=== PATIENT | female | born 1995 | race American Indian/Alaskan Native ===

== ENCOUNTER 2017-01-06 18:19 | Inpatient (IN) | payer MEDICAID ==
[2017-01-06 19:07] LABS: Basophils % (Auto) 0.9 % (0.0-1.8); Eosinophils % (Auto) 1.2 % (0.0-4.3); Hematocrit 44.1 % (30.3-42.9); Hemoglobin 14.5 gm/dl (10.1-14.3); Mean Corpuscular HGB Conc 33 % (30-34); Mean Corpuscular Hemoglobin 29 pg (28-32); Mean Corpuscular Volume 87 fl (79-97); Platelet Count 216 K/mm3 (140-440); Red Blood Count 5.05 M/mm3 (3.65-5.03); Red Cell Distribution Width 14.1 % (13.2-15.2); White Blood Count 6.3 K/mm3 (4.5-11.0)
[2017-01-06 19:18] LABS: Anion Gap 29 mmol/L; BUN/Creatinine Ratio 8.33; Blood Urea Nitrogen 5 mg/dL (7-17); Calcium 9.2 mg/dL (8.4-10.2); Carbon Dioxide 15 mmol/L (22-30); Chloride 90.2 mmol/L (98-107); Glucose 485 mg/dL (65-100); Potassium 4.5 mmol/L (3.6-5.0); Sodium 130 mmol/L (137-145)
[2017-01-07] MEDS ORDERED: NACL 0.9% 1000 ML 1,000 ML IV ONE ×3 (01:08→01:41)
[2017-01-07] MEDS ORDERED: D50W (25GM) Syringe IV PRN (01:41)
--- NOTE | 2017-01-07 01:47 | Emergency Department Report ---
- General Chief complaint: Hyperglycemia Stated complaint: DIABETES Source: patient Mode of arrival: Ambulatory Limitations: No Limitations - History of Present Illness Initial comments: 21-year-old female with a past medical history type 1 diabetes presents to the hospital complaining of dizziness and back pain. Decreased appetite reported. Presents with a complaint is left greater than 1 year recently moved here from [place] does not have a physician. She denies nausea, vomiting, abdominal pain, polyuria, polydipsia dyspnea, or dysuria. No fever reported. - Related Data Home Medications Medication Instructions Recorded Confirmed Last Taken No Known Home Medications [No 01/06/17 01/06/17 Unknown Reported Home Medications] Allergies Allergy/AdvReac Type Severity Reaction Status Date / Time No Known Allergies Allergy Verified 01/07/17 01:50 ED Review of Systems ROS: Stated complaint: DIABETES Other details as noted in HPI Comment: All other systems reviewed and negative Other: Constitutional: No fevers chills or weight loss Eyes: No eye pain visual changes or discharge ENT: No ear pain or throat pain Neck: Denies pain Respiratory: Denies cough wheezing shortness of breath Cardiovascular: Denies chest pain, palpitations, syncope GI: Denies abdominal pain, nausea, vomiting, diarrhea : Denies dysuria, urinary frequency, or urgency Musculoskeletal: Denies joint swelling Skin: Denies rash, lesions, erythema Neurologic: Denies headache, numbness, focal weakness ED Past Medical Hx - Past Medical History Previous Medical History?: Yes Hx Diabetes: Yes (Type 1) - Surgical History Past Surgical History?: No - Social History Smoking Status: Former Smoker Substance Use Type: Non Opiate Pain - Medications Home Medications: Home Medications Medication Instructions Recorded Confirmed Last Taken Type No Known Home Medications [No 01/06/17 01/06/17 Unknown History Reported Home Medications] ED Physical Exam - General Limitations: No Limitations - Other Other exam information: General: No limitations, patient is alert in no acute distress Head exam: Atraumatic, normocephalic Eyes exam: Normal appearance ENT: Moist mucous membrane, normal oropharynx Neck exam: Normal inspection, full range of motion, no meningismus nontender Respiratory exam: Clear to auscultation bilateral, no wheezes, rales, crackles Cardiovascular: Normal rate and rhythm, normal heart sounds Abdomen: Soft, nondistended, and nontender, with normal bowel sounds, no rebound, or guarding Extremity: Full range of motion normal inspection no deformity Back: Normal Inspection, full range of motion, no tenderness Neurologic: Alert, oriented x3, cranial nerves intact, no motor or sensory deficit Psychiatric: normal affect, normal mood Skin: Warm, dry, intact ED Course Vital Signs 01/06/17 18:27 Temperature 98.6 F Pulse Rate 116 H Respiratory 18 Rate Blood Pressure 138/86 O2 Sat by Pulse 99 Oximetry - Reevaluation(s) Reevaluation #1: 01/07/17 IV insulin normal saline and initiated for DKA ED Medical Decision Making - Lab Data Result diagrams: 01/06/17 18:36 01/06/17 18:36 Lab Results 01/06/17 01/06/17 01/06/17 Range/Units 18:36 18:36 18:36 WBC 6.3 (4.5-11.0) K/mm3 RBC 5.05 H (3.65-5.03) M/mm3 Hgb 14.5 H (10.1-14.3) gm/dl Hct 44.1 H (30.3-42.9) % MCV 87 (79-97) fl MCH 29 (28-32) pg MCHC 33 (30-34) % RDW 14.1 (13.2-15.2) % Plt Count 216 (140-440) K/mm3 Lymph % (Auto) 32.1 (13.4-35.0) % [place] % (Auto) 4.8 (0.0-7.3) % Eos % (Auto) 1.2 (0.0-4.3) % Baso % (Auto) 0.9 (0.0-1.8) % Lymph # 2.0 (1.2-5.4) K/mm3 [place] # 0.3 (0.0-0.8) K/mm3 Eos # 0.1 (0.0-0.4) K/mm3 Baso # 0.1 (0.0-0.1) K/mm3 Seg Neutrophils % 61.0 (40.0-70.0) % Seg Neutrophils # 3.8 (1.8-7.7) K/mm3 VBG pH 7.260 L (7.320-7.420) Sodium 130 L (137-145) mmol/L Potassium 4.5 (3.6-5.0) mmol/L Chloride 90.2 L (98-107) mmol/L Carbon Dioxide 15 L (22-30) mmol/L Anion Gap 29 mmol/L BUN 5 L (7-17) mg/dL Creatinine 0.6 L (0.7-1.2) mg/dL Estimated GFR > 60 ml/min BUN/Creatinine Ratio 8.33 % Glucose 485 H (65-100) mg/dL POC Glucose (70-105) Calcium 9.2 (8.4-10.2) mg/dL 01/06/17 01/07/17 Range/Units 18:37 01:47 WBC (4.5-11.0) K/mm3 RBC (3.65-5.03) M/mm3 Hgb (10.1-14.3) gm/dl Hct (30.3-42.9) % MCV (79-97) fl MCH (28-32) pg MCHC (30-34) % RDW (13.2-15.2) % Plt Count (140-440) K/mm3 Lymph % (Auto) (13.4-35.0) % [place] % (Auto) (0.0-7.3) % Eos % (Auto) (0.0-4.3) % Baso % (Auto) (0.0-1.8) % Lymph # (1.2-5.4) K/mm3 [place] # (0.0-0.8) K/mm3 Eos # (0.0-0.4) K/mm3 Baso # (0.0-0.1) K/mm3 Seg Neutrophils % (40.0-70.0) % Seg Neutrophils # (1.8-7.7) K/mm3 VBG pH (7.320-7.420) Sodium (137-145) mmol/L Potassium (3.6-5.0) mmol/L Chloride (98-107) mmol/L Carbon Dioxide (22-30) mmol/L Anion Gap mmol/L BUN (7-17) mg/dL Creatinine (0.7-1.2) mg/dL Estimated GFR ml/min BUN/Creatinine Ratio % Glucose (65-100) mg/dL POC Glucose 424 H 265 H (70-105) Calcium (8.4-10.2) mg/dL - Medical Decision Making Patient has DKA secondary to acid noncompliance. She'll be admitted to the hospital further treatment. Insulin and IV fluids initiated. UA and pending at disposition - Differential Diagnosis DKA, hyperglycemia, anemia, noncompliance Critical Care Time: No Critical care attestation.: If time is entered above; I have spent that time in minutes in the direct care of this critically ill patient, excluding procedure time. ED Disposition Clinical Impression: DKA (diabetic ketoacidosis), Noncompliance Disposition: OP ADMIT IP TO THIS HOSP Is pt being admited?: Yes Condition: Stable Time of Disposition: 01:48 (Dr Medley/Hosp)
[2017-01-07] MEDS ORDERED: D5W/0.45% NACL/KCL 20 MEQ 20 MEQ/1,000 ML BAG IV SCH (02:00)
[2017-01-07] MEDS ORDERED: NovoLIN R 100 UNITS in NACL 0.9% 99 ML IV SCH (02:00)
[2017-01-07] MEDS ORDERED: DULCOLAX PR PRN (02:21)
[2017-01-07] MEDS ORDERED: MILK OF MAGNESIA PO PRN (02:21)
[2017-01-07] MEDS ORDERED: ALUM-MAG HYDROX-SIMETH 200-200-20MG/5ML PO PRN (02:21)
[2017-01-07] MEDS ORDERED: ZOFRAN IV PRN (02:21)
[2017-01-07] MEDS ORDERED: MORPHINE IV PRN (02:21)
--- NOTE | 2017-01-07 02:24 | History and Physical Report ---
History of Present Illness Date of examination: 01/07/17 Date of admission: 01/07/17 Chief complaint: Dizziness, nausea, abdominal pain History of present illness: Patient is 21-year-old with history of diabetes mellitus type 1. She states she had financial difficulties and has not taken her insulin in over one year. She presents today with nausea and dizziness and abdominal pain. Abdominal pain is mid abdomen, 3 out of 10. No vomiting. Abdominal pains not related to meals. She also complained of dizziness. In Emergency department labs reveal diabetic ketoacidosis with a glucose of 435, CO2 15 and anion gap of 29. Will start on insulin drip and admit to intensive care unit. Past History Past Medical History: diabetes Past Surgical History: No surgical history Social history: single, full code. denies: smoking, alcohol abuse Family history: diabetes Medications and Allergies Allergies Allergy/AdvReac Type Severity Reaction Status Date / Time No Known Allergies Allergy Verified 01/07/17 01:50 Home Medications Medication Instructions Recorded Confirmed Last Taken Type No Known Home Medications [No 01/06/17 01/06/17 Unknown History Reported Home Medications] Active Meds: Active Medications Al Hydrox/Mg Hydrox/Simethicone (Alum-Mag Hydrox-Simeth 225-035-57sy/5ml) 30 ml PO Q4H PRN PRN Reason: Indigestion Bisacodyl (Dulcolax) 10 mg NH QDAY PRN PRN Reason: constipation unrelieved by MOM Dextrose (D50w (25gm) Syringe) 0 ml IV PRN PRN PRN Reason: Hypoglycemia Heparin Sodium (Porcine) (Heparin) 5,000 unit SUB-Q Q8HR JAYJAY Potassium Chloride/Dextrose/Sod Cl (D5w/0.45% Nacl/Kcl 20 Meq) 20 meq in 1,000 mls @ 125 mls/hr IV DIRECT JAYJAY Sodium Chloride (Nacl 0.9% 1000 Ml) 1,000 mls @ 999 mls/hr IV BOLUS ONE Stop: 01/07/17 02:41 Insulin Human Regular 100 (units/ Sodium Chloride) 100 mls @ 1 mls/hr IV TITR JAYJAY; 1 UNITS/HR PRN Reason: Protocol Review of Systems All systems: negative (no fever, no headache, no chest pain or shortness of breath. All other systems reviewed and are negative) Exam - Physical Exam Narrative exam: Gen Appearance: Not in acute distress, HEENT: normocephalic, atraumatic Neck: supple, no JVD Lungs: Clear to auscultation, bilaterally, no rales, no wheeze Heart: S1 and S2 regular, no murmurs,no rubs or gallop, Abdomen: Soft , non tender, non distended, normal bowel sounds Extremity: No edema, no clubbing or cyanosis, Neuro : Awake,alert, oriented x 3, moves all extremities - Constitutional Vitals: Temp Pulse Resp BP Pulse Ox 98.6 F 116 H 18 138/86 99 01/06/17 18:27 01/06/17 18:27 01/06/17 18:27 01/06/17 18:27 01/06/17 18:27 Results - Labs CBC & Chem 7: 01/06/17 18:36 01/07/17 02:23 Labs: Abnormal lab results 01/06/17 01/06/17 01/06/17 Range/Units 18:36 18:36 18:36 RBC 5.05 H (3.65-5.03) M/mm3 Hgb 14.5 H (10.1-14.3) gm/dl Hct 44.1 H (30.3-42.9) % VBG pH 7.260 L (7.320-7.420) Sodium 130 L (137-145) mmol/L Chloride 90.2 L (98-107) mmol/L Carbon Dioxide 15 L (22-30) mmol/L BUN 5 L (7-17) mg/dL Creatinine 0.6 L (0.7-1.2) mg/dL Glucose 485 H (65-100) mg/dL POC Glucose (70-105) 01/06/17 01/07/17 Range/Units 18:37 01:47 RBC (3.65-5.03) M/mm3 Hgb (10.1-14.3) gm/dl Hct (30.3-42.9) % VBG pH (7.320-7.420) Sodium (137-145) mmol/L Chloride (98-107) mmol/L Carbon Dioxide (22-30) mmol/L BUN (7-17) mg/dL Creatinine (0.7-1.2) mg/dL Glucose (65-100) mg/dL POC Glucose 424 H 265 H (70-105) Assessment and Plan Diabetic ketoacidosis. Admit to intensive care unit. Start IV fluid, Insulin drip. Utilize DKA protocol. Obtain serial BMPs. Iinitial blood glucose 485, CO2 15 and anion gap 29. Will switch iv fluid when glucose < 250. Hyponatremia with sodium of 130. This should resolve with Normal saline iv fluid. UTI. Start Levaquin DVT prophylaxis with heparin subcut. Full code status
[2017-01-07 03:16] LABS: Anion Gap 27 mmol/L; Blood Urea Nitrogen 5 mg/dL (7-17); Calcium 8.4 mg/dL (8.4-10.2); Carbon Dioxide 16 mmol/L (22-30); Chloride 102.2 mmol/L (98-107); Glucose 160 mg/dL (65-100); Potassium 3.7 mmol/L (3.6-5.0); Sodium 141 mmol/L (137-145)
[2017-01-07] MEDS: HEPARIN SUB-Q SCH ×3 (05:54→23:56)
[2017-01-07 06:50] LABS: Bilirubin,Urine NEG (Negative); Blood,Urine LG (Negative); Ketones,Urine 80 mg/dL (Negative); Leukocyte Esterase,Urine NEG (Negative); Mucus,Urine FEW /HPF; Nitrite,Urine NEG (Negative); Urobilinogen,Urine < 2.0 mg/dL (<2.0)
[2017-01-07] MEDS ORDERED: PROTONIX PO SCH (08:00)
[2017-01-07 09:29] LABS: Anion Gap 16 mmol/L; Blood Urea Nitrogen 4 mg/dL (7-17); Carbon Dioxide 19 mmol/L (22-30); Chloride 109.7 mmol/L (98-107); Glucose 148 mg/dL (65-100); Potassium 3.8 mmol/L (3.6-5.0); Sodium 141 mmol/L (137-145)
[2017-01-07] MEDS ORDERED: LEVAQUIN 500MG/100ML 500 MG/100 ML BAG IV SCH (10:00)
[2017-01-07] MEDS: PROTONIX PO SCH (10:31)
--- NOTE | 2017-01-07 12:38 | Event Note ---
Date: 01/07/17 Hypoglycemic episode while on D5, BS in 30s; insulin drip discontinued temporarily and received D50; AG closed, so will transition to subcutaneous insulin.
[2017-01-07] MEDS: NOVOLOG SUB-Q SCH ×3 (13:26→22:34)
[2017-01-07] MEDS: NACL 0.9% 1000 ML 1,000 ML IV SCH (17:00)
[2017-01-07 17:29] LABS: Anion Gap 20 mmol/L; BUN/Creatinine Ratio 8; Blood Urea Nitrogen 3 mg/dL (7-17); Calcium 8.4 mg/dL (8.4-10.2); Carbon Dioxide 18 mmol/L (22-30); Chloride 104.7 mmol/L (98-107); Glucose 137 mg/dL (65-100); Potassium 4.2 mmol/L (3.6-5.0); Sodium 138 mmol/L (137-145)
[2017-01-08 04:11] LABS: Anion Gap 17 mmol/L; BUN/Creatinine Ratio 8; Blood Urea Nitrogen 3 mg/dL (7-17); Calcium 8.2 mg/dL (8.4-10.2); Carbon Dioxide 18 mmol/L (22-30); Chloride 107.2 mmol/L (98-107); Glucose 223 mg/dL (65-100); Potassium 3.5 mmol/L (3.6-5.0); Sodium 139 mmol/L (137-145)
[2017-01-08] MEDS: HEPARIN SUB-Q SCH ×2 (06:29→17:26)
[2017-01-08 06:37] LABS: Hematocrit 37.2 % (30.3-42.9); Hemoglobin 12.6 gm/dl (10.1-14.3); Mean Corpuscular HGB Conc 34 % (30-34); Mean Corpuscular Hemoglobin 29 pg (28-32); Mean Corpuscular Volume 86 fl (79-97); Platelet Count 175 K/mm3 (140-440); Red Blood Count 4.31 M/mm3 (3.65-5.03); Red Cell Distribution Width 13.9 % (13.2-15.2); White Blood Count 4.9 K/mm3 (4.5-11.0)
[2017-01-08 06:51] LABS: Anion Gap 17 mmol/L; BUN/Creatinine Ratio 5; Blood Urea Nitrogen 2 mg/dL (7-17); Calcium 8.4 mg/dL (8.4-10.2); Carbon Dioxide 20 mmol/L (22-30); Chloride 107.9 mmol/L (98-107); Glucose 202 mg/dL (65-100); Potassium 3.7 mmol/L (3.6-5.0); Sodium 141 mmol/L (137-145)
[2017-01-08 07:49] LABS: Basophils % (Manual) 0 % (0.0-1.8); Blastocytes % (Manual) 0 %; RBC Morphology Normal
[2017-01-08 07:52] LABS: Diff Status Complete
[2017-01-08] MEDS: NOVOLOG SUB-Q SCH ×3 (08:57→18:05)
[2017-01-08] MEDS: PROTONIX PO SCH (10:23)
--- NOTE | 2017-01-08 13:12 | Discharge Summary ---
Providers - Providers Date of Admission: 01/07/17 02:22 Date of discharge: 01/08/17 Attending physician: KELLY ALTAMIRANO Primary care physician: ELECTRIC REPAIR SUPERVISOR Hospitalization Condition: Stable Hospital course: Patient is 21-year-old with history of diabetes mellitus type 1 has not taken her insulin due to financial difficulties. She presented with nausea and dizziness and abdominal pain. In Emergency department labs reveal diabetic ketoacidosis with a glucose of 435, CO2 15 and anion gap of 29. She was started on insulin drip and admited to intensive care unit. her anion gap eventually closed and placed on subcutaneous insulin. She was tolerating diet and BG much stabilized. She was discharged home in stable condition. She was also treated for UTI. Discharge Diagnosis and management: /Diabetic ketoacidosis. Admited to intensive care unit. Placed on IV fluid, Insulin drip. Utilized DKA protocol. Obtained serial BMPs. Iinitial blood glucose was 485, CO2 15 and anion gap 29. Switched to subcu insulin when anion gap was closed. /Hyponatremia with sodium of 130. Resolved with Normal saline iv fluid. likely from hyperglycemia /UTI. placed on Levaquin on admission, d/ramirez with ciprofloxacin /DVT prophylaxis with heparin subcut. Disposition: DC-01 TO HOME OR SELFCARE Time spent for discharge: 32 minutes Core Measure Documentation - Palliative Care Palliative Care/ Comfort Measures: Not Applicable - Core Measures Any of the following diagnoses?: none Exam - Constitutional Vitals: Temp Pulse Resp BP Pulse Ox 98.3 F 86 20 102/68 100 01/08/17 08:40 01/08/17 08:40 01/08/17 08:32 01/08/17 08:40 01/08/17 08:32 General appearance: Present: no acute distress, well-nourished - EENT Eyes: Present: PERRL ENT: hearing intact, clear oral mucosa - Neck Neck: Present: supple, normal ROM - Respiratory Respiratory effort: normal Respiratory: bilateral: CTA - Cardiovascular Heart Sounds: Present: S1 & S2. Absent: rub, click - Extremities Extremities: pulses symmetrical, No edema Peripheral Pulses: within normal limits - Abdominal General gastrointestinal: Present: soft, non-tender, non-distended, normal bowel sounds - Integumentary Integumentary: Present: clear, warm, dry - Musculoskeletal Musculoskeletal: gait normal, strength equal bilaterally - Psychiatric Psychiatric: appropriate mood/affect, intact judgment & insight - Neurologic Neurologic: CNII-XII intact, moves all extremities Plan Activity: advance as tolerated Weight Bearing Status: Weight Bear as Tolerated Diet: diabetic Follow up with: PRIMARY CARE, [Primary Care Provider] - 3-5 Days Prescriptions: Ciprofloxacin HCl [Ciprofloxacin TAB] 500 mg PO BID #7 tablet Insulin NPH/Regular [NovoLIN 70/30] 10 unit SUB-Q BIDDIAB 60 Days
[2017-01-08] MEDS: NACL 0.9% 1000 ML 1,000 ML IV SCH (13:16)
[2017-01-08 17:56] VITALS: BP 108/76
== END 2017-01-08 18:40 | disposition home or self-care (01) | DRG 638 ==
LOC: ED 18:19 → CC1 01-07 02:22 → 3A 01-07 13:12
PROVIDERS: ADMIT Internal Medicine; ATTEND Internal Medicine
DX: E13.10 Other specified diabetes mellitus with ketoacidosis without coma (principal); N39.0 Urinary tract infection, site not specified; E87.1 Hypo-osmolality and hyponatremia; Z91.19 Patient's noncompliance with other medical treatment and regimen; Z87.891 Personal history of nicotine dependence; Z83.3 Family history of diabetes mellitus
CPT/HCPCS: 36415; 80048; 81001; 81025; 82805; 82962; 83036; 83735; 84100; 85007; 85025; 96361; 96365; 96375; J1644; J1815; J1956; J7030

== ENCOUNTER 2017-07-20 23:35 | Inpatient (IN) | payer MEDICAID, OTHER ==
[2017-07-21] MEDS ORDERED: ZOFRAN IM ONE (00:21)
[2017-07-21 00:34] LABS: Basophils # (Auto) 0.1 K/mm3 (0.0-0.1); Basophils % (Auto) 1.1 % (0.0-1.8); Eosinophils # (Auto) 0.1 K/mm3 (0.0-0.4); Eosinophils % (Auto) 1.5 % (0.0-4.3); Hematocrit 46.7 % (30.3-42.9); Hemoglobin 15.3 gm/dl (10.1-14.3); Lymphocytes # (Auto) 2.3 K/mm3 (1.2-5.4); Lymphocytes % (Auto) 37.7 % (13.4-35.0); Mean Corpuscular HGB Conc 33 % (30-34); Mean Corpuscular Hemoglobin 29 pg (28-32); Mean Corpuscular Volume 89 fl (79-97); Monocytes # (Auto) 0.3 K/mm3 (0.0-0.8); Monocytes % (Auto) 5.1 % (0.0-7.3); Platelet Count 223 K/mm3 (140-440); Red Blood Count 5.24 M/mm3 (3.65-5.03); Red Cell Distribution Width 14.3 % (13.2-15.2)
[2017-07-21 00:56] LABS: Alanine Aminotransferase 12 units/L (7-56); Albumin 4.2 g/dL (3.9-5); BUN/Creatinine Ratio 13; Blood Urea Nitrogen 8 mg/dL (7-17); Calcium 9.5 mg/dL (8.4-10.2); Hemolysis Index 5; Lipase 72 units/L (13-60)
[2017-07-21] MEDS ORDERED: REGLAN IV ONE (05:54)
[2017-07-21] MEDS ORDERED: REGLAN ONE (05:57)
--- NOTE | 2017-07-21 06:46 | Emergency Department Report ---
HPI - General Chief Complaint: Abdominal Pain Time Seen by Provider: 07/21/17 06:24 - HPI HPI: The patient is a 21 yo female with a history of typw 1 diabetes, and whom presents for evaluation of abdominal pain. The patient reports abdominal pain for the past 2-3 weeks, progressive, severe for the past one week, cramping in quality, exacerbated with vomiting. She has been multiple episodes of nausea and nonbilious, nonbloody emesis. The patient denies fever, chills, night sweats , headache, chest pain, cough, dyspnea, diarrhea, blood in the stool, dark tarry stool, dysuria, hematuria, flank pain, genital discharge, inability to pass flatus. ED Past Medical Hx - Past Medical History Hx Diabetes: Yes (since age 12) - Social History Smoking Status: Never Smoker Substance Use Type: None - Medications Home Medications: Home Medications Medication Instructions Recorded Confirmed Last Taken Type Ciprofloxacin HCl [Ciprofloxacin 500 mg PO BID #7 tablet 01/08/17 Unknown Rx TAB] Insulin NPH/Regular [NovoLIN 70/30] 10 unit SUB-Q BIDDIAB 60 Days 01/08/17 Unknown Rx units ED Review of Systems ROS: Stated complaint: ABDOMINAL PAIN Other details as noted in HPI Constitutional: denies: fever ENT: denies: throat or neck pain Respiratory: denies: cough, shortness of breath Cardiovascular: denies: chest pain Endocrine: denies unexplained weight loss or gain Gastrointestinal: reports abdominal pain, nausea Genitourinary: denies: dysuria Musculoskeletal: denies: leg swelling Skin: denies: rash Neurological: denies: headache Hematological/Lymphatic: denies: easy bleeding or easy bruising Psych: denies sadness or hopelessness Physical Exam - Physical Exam Vital Signs: Vital Signs 07/20/17 07/21/17 23:45 00:05 Temperature 98.7 F 98 F Pulse Rate 121 H 110 H Respiratory 18 16 Rate Blood Pressure 109/81 105/81 O2 Sat by Pulse 100 99 Oximetry Physical Exam: General: well-nourished, well-developed, no acute distress Head: Normocephalic, atraumatic Eyes: normal sclera ENT: Mucous membranes are pale and dry Neck: No neck stiffness, no cervical adenopathy Respiratory: Breath sounds equal bilaterally, no wheezing, rales, or rhonchi Cardio: S1 and S2 present, no murmurs, rubs, gallops, capillary refill is delayed Abdomen: Normoactive bowel sounds, soft abdomen, periumbilical tenderness to palpation present, no rigidity, no guarding or rebound tenderness Chest WALL/Back: No tenderness to palpation of the chest wall, no CVA tenderness with percussion Musc: No pitting edema Skin: No rash Neuro: no facial drooping, normal speech Psych: Normal affect ED Course Vital Signs 07/20/17 07/21/17 23:45 00:05 Temperature 98.7 F 98 F Pulse Rate 121 H 110 H Respiratory 18 16 Rate Blood Pressure 109/81 105/81 O2 Sat by Pulse 100 99 Oximetry ED Medical Decision Making - Lab Data Result diagrams: 07/21/17 00:21 07/21/17 00:21 - Medical Decision Making The patient was seen and examined by myself. The patient is placed on a cardiac exercise physiologist and continuous pulse ox. On initial evaluation, the patient was found to be in no distress. Evaluation orders are placed. IV access is established and the patient is given 1 L normal saline fluid bolus and Zofran for nausea, and IV analgesic for pain. Lab results reveal elevated lipase level 72, glucose of 316, low pH of 7.23, increased anion gap 38, and low bicarbonate, consistent with diabetic ketoacidosis. The patient is given IV insulin for treatment of her hyperglycemia and normal saline fluid boluses for treatment of her dehydration. The on-call hospitalist service was contacted. They agreed to admit the patient for further treatment and close monitoring. The ED admit order was placed. The patient was admitted in guarded condition. Critical care attestation.: If time is entered above; I have spent that time in minutes in the direct care of this critically ill patient, excluding procedure time. ED Disposition Clinical Impression: Dehydration DKA (diabetic ketoacidosis) Qualifiers: Diabetes mellitus type: type 1 Diabetes mellitus complication detail: without coma Qualified Code(s): E10.10 - Type 1 diabetes mellitus with ketoacidosis without coma Pancreatitis, acute Qualifiers: Pancreatitis type: unspecified pancreatitis type Acute pancreatitis complication: unspecified Qualified Code(s): K85.90 - Acute pancreatitis without necrosis or infection, unspecified Disposition: 09 OP ADMIT IP TO THIS HOSP Is pt being admited?: Yes Does the pt Need Aspirin: Yes Condition: Serious Instructions: Diabetic Ketoacidosis (ED), Abdominal Pain (ED) Referrals: BECKY ZAMBRANO MD [Primary Care Provider] - 3-5 Days Time of Disposition: 06:48
[2017-07-21] MEDS ORDERED: HumuLIN R IV ONE ×3 (06:47→08:38)
[2017-07-21] MEDS ORDERED: NACL 0.9% 1000 ML 1,000 ML IV ONE ×3 (06:47→11:04)
[2017-07-21] MEDS ORDERED: SUBLIMAZE IV ONE (06:59)
[2017-07-21] MEDS ORDERED: ATIVAN IV ONE (07:00)
[2017-07-21] MEDS ORDERED: ZOFRAN IV ONE (07:00)
--- NOTE | 2017-07-21 09:40 | History and Physical Report ---
History of Present Illness Date of examination: 07/21/17 Date of admission: 07/21/17 Chief complaint: Nausea Vomiting Abdominal pain Past History Past Medical History: diabetes Social history: single, Lives alone, full code. denies: smoking, alcohol abuse Family history: diabetes Medications and Allergies Allergies Allergy/AdvReac Type Severity Reaction Status Date / Time No Known Allergies Allergy Verified 01/07/17 01:50 Home Medications Medication Instructions Recorded Confirmed Last Taken Type Ciprofloxacin HCl [Ciprofloxacin 500 mg PO BID #7 tablet 01/08/17 Unknown Rx TAB] Insulin NPH/Regular [NovoLIN 70/30] 10 unit SUB-Q BIDDIAB 60 Days 01/08/17 Unknown Rx units Active Meds: Active Medications Sodium Chloride (Nacl 0.9% 1000 Ml) 1,000 mls @ 999 mls/hr IV BOLUS ONE Stop: 07/21/17 10:38 Exam - Physical Exam Narrative exam: Gen appearance: Not in acute distress, lying in bed, HEENT:Normocephalic, atraumatic Neck:supple, no JVD Lungs: Clear to auscultation bilaterally, no crackles , no wheeze Heart: S1 and S2 regular, no murmurs, no rubs or gallop Abdomen: soft, non tender, non distended, normal bowel sounds Ext: No edema, no clubbing, no cyanosis. Neuro: Awake, alert, oriented x 3. Moves all ext, no focal signs Psych:Normal mood - Constitutional Vitals: Temp Pulse Resp BP Pulse Ox 98 F 110 H 18 105/81 98 07/21/17 00:05 07/21/17 00:05 07/21/17 08:09 07/21/17 00:05 07/21/17 08:09 Results - Labs CBC & Chem 7: 07/21/17 00:21 07/21/17 11:44 Labs: Abnormal lab results 07/21/17 07/21/17 07/21/17 Range/Units 00:17 00:21 00:21 RBC 5.24 H (3.65-5.03) M/mm3 Hgb 15.3 H (10.1-14.3) gm/dl Hct 46.7 H (30.3-42.9) % Lymph % (Auto) 37.7 H (13.4-35.0) % VBG pH (7.320-7.420) Chloride 95.5 L (98-107) mmol/L Carbon Dioxide 13 L (22-30) mmol/L Creatinine 0.6 L (0.7-1.2) mg/dL Glucose 243 H (65-100) mg/dL POC Glucose 238 H (70-105) Lipase 72 H (13-60) units/L 07/21/17 07/21/17 Range/Units 00:21 08:30 RBC (3.65-5.03) M/mm3 Hgb (10.1-14.3) gm/dl Hct (30.3-42.9) % Lymph % (Auto) (13.4-35.0) % VBG pH 7.235 L (7.320-7.420) Chloride (98-107) mmol/L Carbon Dioxide (22-30) mmol/L Creatinine (0.7-1.2) mg/dL Glucose (65-100) mg/dL POC Glucose 316 H (70-105) Lipase (13-60) units/L Assessment and Plan DKA. Will repeat BMP stat. If anion gap high, will start Insulin drip and admit to ICU
[2017-07-21 11:01] LABS: BUN/Creatinine Ratio 16; Blood Urea Nitrogen 11 mg/dL (7-17); Calcium 8.9 mg/dL (8.4-10.2); Hemolysis Index 7
[2017-07-21] MEDS ORDERED: D50W (25GM) Syringe IV PRN (11:25)
[2017-07-21] MEDS ORDERED: SODIUM CHLORIDE FLUSH SYRINGE 10 ML IV PRN (11:25)
[2017-07-21] MEDS ORDERED: PERCOCET 5/325 PO PRN (11:25)
[2017-07-21] MEDS ORDERED: ZOFRAN IV PRN (11:25)
[2017-07-21] MEDS ORDERED: SODIUM BICARBONATE IV ONE ×2 (11:50→12:00)
[2017-07-21] MEDS ORDERED: KCL 20MEQ/100ML 20 MEQ/100 ML BAG IV SCH ×2 (12:00)
[2017-07-21] MEDS ORDERED: SODIUM BICARBONATE 50 MEQ in NACL 0.9% 1000 ML 1,000 ML IV ONE (12:00)
[2017-07-21] MEDS ORDERED: HumuLIN R 100 UNITS in NACL 0.9% 99 ML IV SCH (12:00)
[2017-07-21] MEDS ORDERED: D5W/0.45% NACL/KCL 20 MEQ 20 MEQ/1,000 ML BAG IV ONE (12:13)
[2017-07-21 12:22] LABS: BUN/Creatinine Ratio 14; Blood Urea Nitrogen 10 mg/dL (7-17); Calcium 8.4 mg/dL (8.4-10.2)
[2017-07-21 12:23] LABS: Hemolysis Index 2
[2017-07-21] MEDS: D5W/0.45% NACL/KCL 20 MEQ 20 MEQ/1,000 ML BAG IV SCH ×2 (12:33→20:06)
[2017-07-21 12:45] LABS: Bilirubin,Urine NEG (Negative); Blood,Urine NEG (Negative); Color,Urine Straw (Yellow); Mucus,Urine FEW /HPF; Protein,Urine <15 mg/dL mg/dL (Negative); Urobilinogen,Urine < 2.0 mg/dL (<2.0); WBC,Urine < 1.0 /HPF (0.0-6.0)
[2017-07-21 13:23] LABS: Amphetamine Screen,Urine PRESUMPTIVE NEGATIVE; Benzodiazepines Screen,Urine PRESUMPTIVE NEGATIVE; Cannabinoid Screen,Urine PRESUMPTIVE NEGATIVE; Cocaine Screen,Urine PRESUMPTIVE NEGATIVE; Methadone Screen,Urine PRESUMPTIVE NEGATIVE; Opiate Screen,Urine PRESUMPTIVE NEGATIVE
[2017-07-21 13:55] LABS: BUN/Creatinine Ratio 13; Blood Urea Nitrogen 9 mg/dL (7-17); Calcium 8.5 mg/dL (8.4-10.2); Hemolysis Index 8
[2017-07-21] MEDS: SODIUM BICARBONATE 100 MEQ in STERILE WATER 1,000 ML IV SCH ×2 (15:31→23:26)
[2017-07-21 16:10] LABS: BUN/Creatinine Ratio 13; Blood Urea Nitrogen 8 mg/dL (7-17); Calcium 8.7 mg/dL (8.4-10.2); Hemolysis Index 18
[2017-07-21 18:20] LABS: BUN/Creatinine Ratio 12; Blood Urea Nitrogen 7 mg/dL (7-17); Calcium 8.3 mg/dL (8.4-10.2); Hemolysis Index 32
[2017-07-21 20:23] LABS: BUN/Creatinine Ratio 12; Blood Urea Nitrogen 7 mg/dL (7-17); Calcium 8.2 mg/dL (8.4-10.2); Hemolysis Index 4
[2017-07-21] MEDS ORDERED: SODIUM CHLORIDE FLUSH SYRINGE 10 ML IV SCH (22:00)
[2017-07-21] MEDS ORDERED: LOVENOX SUB-Q SCH (22:00)
[2017-07-22 01:09] VITALS: BP 122/82
[2017-07-22] MEDS ORDERED: PNEUMOVAX 23 IM ONE (12:00)
[2017-07-22] MEDS ORDERED: Fluarix Quad 2017-2018(36 MOS+ IM ONE (12:00)
== END 2017-07-22 00:55 | disposition left against medical advice (07) | DRG 438 ==
LOC: ED 23:35 → CC1 07-21 11:29
PROVIDERS: ADMIT Internal Medicine; ATTEND Internal Medicine
PROC: 3E0234Z Introduction of Serum, Toxoid and Vaccine into Muscle, Percutaneous Approach (ICD-10-PCS; principal; 2017-07-22)
DX: K85.90 Acute pancreatitis without necrosis or infection, unspecified (principal); E10.10 Type 1 diabetes mellitus with ketoacidosis without coma; Z60.2 Problems related to living alone; E86.0 Dehydration; Z79.899 Other long term (current) drug therapy; Z79.4 Long term (current) use of insulin; Z83.3 Family history of diabetes mellitus; Z23 Encounter for immunization
CPT/HCPCS: 36415; 80048; 80053; 80307; 81001; 82010; 82805; 82962; 83036; 83690; 83735; 84100; 84703; 85025; 99285; J1815; J2060; J2405; J2765; J3010; J7030

== ENCOUNTER 2017-11-19 09:05 | Emergency (ER) | payer MEDICAID ==
[2017-11-19 09:55] LABS: Basophils # (Auto) 0.1 K/mm3 (0.0-0.1); Basophils % (Auto) 1.1 % (0.0-1.8); Eosinophils # (Auto) 0.2 K/mm3 (0.0-0.4); Hematocrit 41.7 % (30.3-42.9); Hemoglobin 13.9 gm/dl (10.1-14.3); Lymphocytes # (Auto) 2.3 K/mm3 (1.2-5.4); Lymphocytes % (Auto) 51.7 % (13.4-35.0); Mean Corpuscular HGB Conc 33 % (30-34); Mean Corpuscular Hemoglobin 29 pg (28-32); Mean Corpuscular Volume 87 fl (79-97); Monocytes # (Auto) 0.3 K/mm3 (0.0-0.8); Monocytes % (Auto) 5.8 % (0.0-7.3); Platelet Count 198 K/mm3 (140-440); Red Blood Count 4.81 M/mm3 (3.65-5.03); Red Cell Distribution Width 14.6 % (13.2-15.2)
[2017-11-19 10:09] LABS: BUN/Creatinine Ratio 10; Blood Urea Nitrogen 6 mg/dL (7-17); Calcium 8.9 mg/dL (8.4-10.2); Hemolysis Index 26
[2017-11-19] MEDS ORDERED: NACL 0.9% 1000 ML 1,000 ML IV ONE ×2 (11:42→13:34)
[2017-11-19] MEDS ORDERED: HumuLIN R IV ONE (11:42)
--- NOTE | 2017-11-19 13:34 | Emergency Department Report ---
ED General Adult HPI - General Chief complaint: Hyperglycemia Stated complaint: DIABETES Time Seen by Provider: 11/19/17 11:41 Source: patient Mode of arrival: Ambulatory Limitations: No Limitations - History of Present Illness Initial comments: This is a 22-year-old female that admits noncompliance with her insulin 70/30 regimen for at least one week. She does complain of polyuria and polydipsia. She has not been vomiting. She decided to come to the emergency department today as she has no primary care provider. She moved up here from [place] over a week ago. She denies fever chills chest pain or abdominal pain. She is not short of breath. -: week(s) Improves with: none Worsens with: none Associated Symptoms: denies other symptoms Treatments Prior to Arrival: none - Related Data Previous Rx's Medication Instructions Recorded Last Taken Type Ciprofloxacin HCl [Ciprofloxacin 500 mg PO BID #7 tablet 01/08/17 Unknown Rx TAB] Insulin NPH/Regular [NovoLIN 70/30] 10 unit SUB-Q BIDDIAB 60 Days 01/08/17 Unknown Rx units Insulin NPH Hum/Reg Insulin Hm 20 unit SQ BID #1 bottle 11/19/17 Unknown Rx [HumuLIN 70-30 Vial] Allergies Allergy/AdvReac Type Severity Reaction Status Date / Time No Known Allergies Allergy Verified 11/19/17 09:11 ED Review of Systems ROS: Stated complaint: DIABETES Other details as noted in HPI Constitutional: denies: chills, fever Eyes: denies: eye pain, eye discharge, vision change ENT: denies: ear pain, throat pain Respiratory: denies: cough, shortness of breath, wheezing Cardiovascular: denies: chest pain, palpitations Endocrine: increased hunger, increased thirst, increased urine Gastrointestinal: denies: abdominal pain, nausea, diarrhea Genitourinary: denies: urgency, dysuria, discharge Musculoskeletal: denies: back pain, joint swelling, arthralgia Skin: denies: rash, lesions Neurological: denies: headache, weakness, paresthesias Psychiatric: denies: anxiety, depression Hematological/Lymphatic: denies: easy bleeding, easy bruising ED Past Medical Hx - Past Medical History Hx Congestive Heart Failure: No Hx Diabetes: Yes (since age 12) Hx Asthma: No Hx COPD: No - Surgical History Past Surgical History?: No - Social History Smoking Status: Never Smoker Substance Use Type: None - Medications Home Medications: Home Medications Medication Instructions Recorded Confirmed Last Taken Type Ciprofloxacin HCl [Ciprofloxacin 500 mg PO BID #7 tablet 01/08/17 Unknown Rx TAB] Insulin NPH/Regular [NovoLIN 70/30] 10 unit SUB-Q BIDDIAB 60 Days 01/08/17 Unknown Rx units Insulin NPH Hum/Reg Insulin Hm 20 unit SQ BID #1 bottle 11/19/17 Unknown Rx [HumuLIN 70-30 Vial] ED Physical Exam - General Limitations: No Limitations General appearance: alert, in no apparent distress - Head Head exam: Present: atraumatic, normocephalic - Eye Eye exam: Present: normal appearance. Absent: scleral icterus - ENT ENT exam: Present: mucous membranes moist - Neck Neck exam: Present: normal inspection. Absent: tenderness, meningismus - Respiratory Respiratory exam: Present: normal lung sounds bilaterally. Absent: respiratory distress - Cardiovascular Cardiovascular Exam: Present: regular rate, normal rhythm. Absent: systolic murmur, diastolic murmur, rubs, gallop - GI/Abdominal GI/Abdominal exam: Present: soft, normal bowel sounds. Absent: distended, tenderness, guarding, rebound, rigid - Extremities Exam Extremities exam: Present: normal inspection, full ROM. Absent: calf tenderness - Back Exam Back exam: Present: normal inspection - Neurological Exam Neurological exam: Present: alert, oriented X3, CN II-XII intact. Absent: motor sensory deficit - Psychiatric Psychiatric exam: Present: normal affect, normal mood - Skin Skin exam: Present: warm, dry, intact, normal color. Absent: rash ED Course Vital Signs 11/19/17 09:11 Temperature 98.2 F Pulse Rate 120 H Respiratory 20 Rate Blood Pressure 118/74 O2 Sat by Pulse 99 Oximetry - Reevaluation(s) Reevaluation #1: Patient was given 1 dose of IV insulin. Sugar came to approximately 250. She was given IV fluid. She has no indication for acute hospitalization. She was previously on 70/30 insulin 20 units twice a day and no regular coverage. She states that she was taken off regular and the sliding scale. I'm going to restart her 7030 at this time and refer her to the local primary care clinic. 11/19/17 13:32 Reevaluation #2: Patient is not confused. Her mental status is normal. She tolerated a liter of normal saline. I will give her another liter prior to her departure. I think part of her hyponatremia is probably experiencing related to her hyper glycemia. However she's been drinking a lot of water. She is told not to do so further. 11/19/17 13:33 ED Medical Decision Making - Lab Data Result diagrams: 11/19/17 09:40 11/19/17 09:43 Laboratory Results - last 24 hr 11/19/17 11/19/17 11/19/17 09:15 09:40 09:43 WBC 4.5 RBC 4.81 Hgb 13.9 Hct 41.7 MCV 87 MCH 29 MCHC 33 RDW 14.6 Plt Count 198 Lymph % (Auto) 51.7 H [place] % (Auto) 5.8 Eos % (Auto) 4.0 Baso % (Auto) 1.1 Lymph # 2.3 [place] # 0.3 Eos # 0.2 Baso # 0.1 Seg Neutrophils % 37.4 L Seg Neutrophils # 1.7 L VBG pH Sodium 128 L Potassium 3.8 Chloride 91.6 L Carbon Dioxide 21 L Anion Gap 19 BUN 6 L Creatinine 0.6 L Estimated GFR > 60 BUN/Creatinine Ratio 10 Glucose 447 H POC Glucose 355 H Calcium 8.9 11/19/17 11/19/17 09:43 13:22 WBC RBC Hgb Hct MCV MCH MCHC RDW Plt Count Lymph % (Auto) [place] % (Auto) Eos % (Auto) Baso % (Auto) Lymph # [place] # Eos # Baso # Seg Neutrophils % Seg Neutrophils # VBG pH 7.314 L Sodium Potassium Chloride Carbon Dioxide Anion Gap BUN Creatinine Estimated GFR BUN/Creatinine Ratio Glucose POC Glucose 264 H Calcium Critical care attestation.: If time is entered above; I have spent that time in minutes in the direct care of this critically ill patient, excluding procedure time. ED Disposition Clinical Impression: Uncontrolled type 1 diabetes mellitus with hyperglycemia, Hyponatremia Disposition: DC-01 TO HOME OR SELFCARE Is pt being admited?: No Does the pt Need Aspirin: No Condition: Stable Instructions: Diabetes Mellitus Type 2 in Adults (ED), Hyponatremia (ED) Additional Instructions: Do not drink excessive water. Get her insulin and continue. Return if any further problem or acute change. Follow[facility]up at the [facility]. Prescriptions: Insulin NPH Hum/Reg Insulin Hm [HumuLIN 70-30 Vial] 20 unit SQ BID #1 bottle Referrals: PRIMARY CARE, [Primary Care Provider] - 3-5 Days Time of Disposition: 13:49
[2017-11-19] MEDS ORDERED: HumuLIN R ONE (15:39)
[2017-11-19] MEDS ORDERED: HumuLIN R SUB-Q ONE (15:42)
[2017-11-19 16:07] VITALS: BP 104/72
== END 2017-11-19 15:52 | disposition home or self-care (01) ==
LOC: ED 09:05
DX: E10.65 Type 1 diabetes mellitus with hyperglycemia (principal); E87.1 Hypo-osmolality and hyponatremia; Z79.4 Long term (current) use of insulin
CPT/HCPCS: 36415; 80048; 82805; 82962; 85025; 93005; 93010; 96361; 96372; 96374; 99284; J7030; J1815

== ENCOUNTER 2018-01-29 11:36 | Inpatient (IN) | payer SELFPAY ==
[2018-01-29] MEDS ORDERED: NACL 0.9% 1000 ML 1,000 ML ONE (11:49)
--- NOTE | 2018-01-29 11:57 | Emergency Department Report ---
HPI - General Chief Complaint: Hyperglycemia Time Seen by Provider: 01/29/18 11:44 - HPI HPI: 22-year-old female presents to the emergency department with complaint of a few days of nausea and vomiting, bilateral lower extremity and foot pains and some elevated blood sugar. The patient is a insulin-dependent diabetic. She recently moved up here from [place] and therefore does not have a primary care physician and does not have insurance. She usually has been on Humalog 20 units 3 times daily but cannot afford that and therefore has been buying 70/30 [id number] allegedly and taking 20 units 3 times a day of this. She denies any fever, chest pain, shortness of breath. ED Past Medical Hx - Past Medical History Hx Congestive Heart Failure: No Hx Diabetes: Yes (since age 12) Hx Asthma: No Hx COPD: No - Social History Smoking Status: Never Smoker Substance Use Type: None - Medications Home Medications: Home Medications Medication Instructions Recorded Confirmed Last Taken Type Insulin NPH Hum/Reg Insulin Hm 20 unit SQ TID 01/29/18 01/29/18 01/29/18 History [Novolin 70-30 100 Unit/ml Vial] ED Review of Systems ROS: Stated complaint: VOMITTING Other details as noted in HPI Comment: All other systems reviewed and negative Constitutional: denies: chills, fever Eyes: denies: eye pain, eye discharge, vision change ENT: denies: ear pain, throat pain Respiratory: denies: cough, shortness of breath, wheezing Cardiovascular: denies: chest pain, palpitations Gastrointestinal: nausea, vomiting Genitourinary: denies: dysuria, discharge Musculoskeletal: myalgia. denies: joint swelling Neurological: denies: headache, weakness Physical Exam - Physical Exam Vital Signs: Vital Signs 01/29/18 11:44 Temperature 98.7 F Pulse Rate 135 H Physical Exam: GENERAL: The patient is well-developed well-nourished. HEENT: Normocephalic. Atraumatic. Patient has dry mucous membranes. EYES: Extraocular motions are intact. Pupils are equal and reactive to light bilaterally. NECK: Supple. Trachea is midline. CHEST/LUNGS: Clear to auscultation. There is no respiratory distress noted. HEART/CARDIOVASCULAR: Regular. There is moderate tachycardia. There is no gallop rub or murmur. ABDOMEN: Abdomen is soft, nontender. Patient has normal bowel sounds. There is no abdominal distention. SKIN: Skin is warm and dry. NEURO: The patient is awake, alert, and oriented. The patient is cooperative. The patient has no focal neurologic deficits. The patient has normal speech. MUSCULOSKELETAL: There is no tenderness or deformity. There is no evidence of acute injury. ED Course Vital Signs 01/29/18 11:44 Temperature 98.7 F Pulse Rate 135 H ED Medical Decision Making - Lab Data Result diagrams: 01/29/18 11:53 01/29/18 11:54 - Medical Decision Making Patient presents in diabetic ketoacidosis. She has a venous acidosis of 7.26, a blood sugar of greater than 500 and an anion gap of 37. She has been started on an insulin drip with IV fluid resuscitation and will be admitted to the ICU or stepdown unit. She has been accepted for admission by the hospitalist, Dr. Rojas. - Differential Diagnosis DKA, HHNK, Sepsis Critical Care Time: Yes Critical care time in (mins) excluding proc time.: 35 Critical care attestation.: If time is entered above; I have spent that time in minutes in the direct care of this critically ill patient, excluding procedure time. Critical care time was spent on this patient during her initial evaluation, multiple re-evaluations, ordering and interpretation of labs and imaging, ordering of IV fluid resuscitation and insulin drip. Critical Care Time: 35 minutes ED Disposition Clinical Impression: Dehydration DKA (diabetic ketoacidosis) Qualifiers: Diabetes mellitus type: type 1 Diabetes mellitus complication detail: without coma Qualified Code(s): E10.10 - Type 1 diabetes mellitus with ketoacidosis without coma Disposition: 09 OP ADMIT IP TO THIS HOSP Is pt being admited?: Yes Condition: Serious Instructions: Diabetic Ketoacidosis (ED) Time of Disposition: 13:47
[2018-01-29 12:12] LABS: Basophils # (Auto) 0.1 K/mm3 (0.0-0.1); Basophils % (Auto) 0.8 % (0.0-1.8); Eosinophils % (Auto) 0.5 % (0.0-4.3); Hematocrit 42.9 % (30.3-42.9); Hemoglobin 14.2 gm/dl (10.1-14.3); Lymphocytes # (Auto) 1.8 K/mm3 (1.2-5.4); Lymphocytes % (Auto) 22.5 % (13.4-35.0); Mean Corpuscular HGB Conc 33 % (30-34); Mean Corpuscular Hemoglobin 29 pg (28-32); Mean Corpuscular Volume 87 fl (79-97); Monocytes # (Auto) 0.3 K/mm3 (0.0-0.8); Monocytes % (Auto) 3.5 % (0.0-7.3); Platelet Count 239 K/mm3 (140-440); Red Blood Count 4.94 M/mm3 (3.65-5.03); Red Cell Distribution Width 16.3 % (13.2-15.2)
[2018-01-29] MEDS: NACL 0.9% 1000 ML 1,000 ML IV ONE ×3 (12:27→16:31)
[2018-01-29 12:33] LABS: Alanine Aminotransferase 11 units/L (7-56); Albumin 3.9 g/dL (3.9-5); BUN/Creatinine Ratio 17; Blood Urea Nitrogen 12 mg/dL (7-17); Calcium 9.2 mg/dL (8.4-10.2); Hemolysis Index 23
[2018-01-29] MEDS ORDERED: D50W (25GM) Syringe IV PRN ×2 (12:45→14:53)
[2018-01-29] MEDS ORDERED: ZOFRAN IV ONE (13:16)
[2018-01-29 13:39] LABS: Bacteria,Urine 1+ /HPF (Negative); Bilirubin,Urine NEG (Negative); Blood,Urine NEG (Negative); Color,Urine Straw (Yellow); Mucus,Urine FEW /HPF; Protein,Urine <15 mg/dL mg/dL (Negative); Urobilinogen,Urine < 2.0 mg/dL (<2.0)
[2018-01-29] MEDS: HumuLIN R 100 UNITS in NACL 0.9% 99 ML IV SCH ×2 (13:40→19:03)
[2018-01-29] MEDS ORDERED: NACL 0.9% 1000 ML 1,000 ML IV ONE (13:43)
[2018-01-29 14:20] LABS: Amphetamine Screen,Urine PRESUMPTIVE NEGATIVE; Benzodiazepines Screen,Urine PRESUMPTIVE NEGATIVE; Cannabinoid Screen,Urine PRESUMPTIVE NEGATIVE; Cocaine Screen,Urine PRESUMPTIVE NEGATIVE; Methadone Screen,Urine PRESUMPTIVE NEGATIVE; Opiate Screen,Urine PRESUMPTIVE NEGATIVE
--- NOTE | 2018-01-29 14:44 | History and Physical Report ---
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 Past Medical History Diabetes: Yes (since age 12) Social History Smoking Status: Never Smoker Past Surgical History N/A Family History Htn - Medications Home Medications: Home Medications Medication Instructions Recorded Confirmed Last Taken Type Insulin NPH Hum/Reg Insulin Hm 20 unit SQ TID 01/29/18 01/29/18 01/29/18 History [Novolin 70-30 100 Unit/ml Vial] Review of Systems ROS: Stated complaint: VOMITTING Other details as noted in HPI Comment: All other systems reviewed and negative Constitutional: denies: chills, fever Eyes: denies: eye pain, eye discharge, vision change ENT: denies: ear pain, throat pain Respiratory: denies: cough, shortness of breath, wheezing Cardiovascular: denies: chest pain, palpitations Gastrointestinal: nausea, vomiting Genitourinary: denies: dysuria, discharge Musculoskeletal: myalgia. denies: joint swelling Neurological: denies: headache, weakness Medications and Allergies Allergies Allergy/AdvReac Type Severity Reaction Status Date / Time No Known Allergies Allergy Verified 11/19/17 09:11 Home Medications Medication Instructions Recorded Confirmed Last Taken Type Insulin NPH Hum/Reg Insulin Hm 20 unit SQ TID 01/29/18 01/29/18 01/29/18 History [Novolin 70-30 100 Unit/ml Vial] Active Meds: Active Medications Dextrose (D50w (25gm) Syringe) 0 ml IV PRN PRN PRN Reason: Hypoglycemia Insulin Human Regular 100 (units/ Sodium Chloride) 100 mls @ 5 mls/hr IV TITR JAYJAY; Protocol Last Admin: 01/29/18 13:40 Dose: 5 units/hr, 5 mls/hr Exam - Constitutional Vitals: Temp Pulse Resp BP Pulse Ox 98.7 F 133 H 19 113/71 100 01/29/18 11:44 01/29/18 13:30 01/29/18 13:30 01/29/18 13:30 01/29/18 13:30 General appearance: Present: no acute distress, well-nourished - EENT Eyes: Present: PERRL ENT: hearing intact, clear oral mucosa - Neck Neck: Present: supple, normal ROM - Respiratory Respiratory effort: normal Respiratory: bilateral: CTA - Cardiovascular Heart rate: 78 Rhythm: regular Heart Sounds: Present: S1 & S2. Absent: rub, click - Extremities Extremities: no ischemia, pulses intact, pulses symmetrical, No edema Peripheral Pulses: within normal limits - Abdominal General gastrointestinal: Present: soft, non-tender, non-distended, normal bowel sounds Female genitourinary: Present: normal - Rectal Rectal Exam: deferred - Integumentary Integumentary: Present: clear, warm, dry - Musculoskeletal Musculoskeletal: gait normal, strength equal bilaterally - Psychiatric Psychiatric: appropriate mood/affect, intact judgment & insight - Neurologic Neurologic: CNII-XII intact, moves all extremities - Allied Health Allied health notes reviewed: nursing, case management Results - Labs CBC & Chem 7: 01/29/18 11:53 01/29/18 23:40 Labs: Laboratory Last Values WBC 8.1 K/mm3 (4.5-11.0) 01/29/18 11:53 RBC 4.94 M/mm3 (3.65-5.03) 01/29/18 11:53 Hgb 14.2 gm/dl (10.1-14.3) 01/29/18 11:53 Hct 42.9 % (30.3-42.9) 01/29/18 11:53 MCV 87 fl (79-97) 01/29/18 11:53 MCH 29 pg (28-32) 01/29/18 11:53 MCHC 33 % (30-34) 01/29/18 11:53 RDW 16.3 % (13.2-15.2) H 01/29/18 11:53 Plt Count 239 K/mm3 (140-440) 01/29/18 11:53 Lymph % (Auto) 22.5 % (13.4-35.0) 01/29/18 11:53 [place] % (Auto) 3.5 % (0.0-7.3) 01/29/18 11:53 Eos % (Auto) 0.5 % (0.0-4.3) 01/29/18 11:53 Baso % (Auto) 0.8 % (0.0-1.8) 01/29/18 11:53 Lymph # 1.8 K/mm3 (1.2-5.4) 01/29/18 11:53 [place] # 0.3 K/mm3 (0.0-0.8) 01/29/18 11:53 Eos # 0.0 K/mm3 (0.0-0.4) 01/29/18 11:53 Baso # 0.1 K/mm3 (0.0-0.1) 01/29/18 11:53 Seg Neutrophils % 72.7 % (40.0-70.0) H 01/29/18 11:53 Seg Neutrophils # 5.9 K/mm3 (1.8-7.7) 01/29/18 11:53 VBG pH 7.241 (7.320-7.420) L 01/29/18 11:54 Sodium 133 mmol/L (137-145) L 01/29/18 11:54 Potassium 5.1 mmol/L (3.6-5.0) H 01/29/18 11:54 Chloride 91.0 mmol/L (98-107) L 01/29/18 11:54 Carbon Dioxide 10 mmol/L (22-30) L 01/29/18 11:54 Anion Gap 37 mmol/L 01/29/18 11:54 BUN 12 mg/dL (7-17) 01/29/18 11:54 Creatinine 0.7 mg/dL (0.7-1.2) 01/29/18 11:54 Estimated GFR > 60 ml/min 01/29/18 11:54 BUN/Creatinine Ratio 17 % 01/29/18 11:54 Glucose 518 mg/dL (65-100) H* 01/29/18 11:54 POC Glucose 348 (70-105) H 01/29/18 14:07 Calcium 9.2 mg/dL (8.4-10.2) 01/29/18 11:54 Phosphorus 5.00 mg/dL (2.5-4.5) H 01/29/18 11:54 Magnesium 2.00 mg/dL (1.7-2.3) 01/29/18 11:54 Total Bilirubin 0.80 mg/dL (0.1-1.2) 01/29/18 11:54 AST 15 units/L (5-40) 01/29/18 11:54 ALT 11 units/L (7-56) 01/29/18 11:54 Alkaline Phosphatase 63 units/L (35-129) 01/29/18 11:54 Total Protein 7.1 g/dL (6.3-8.2) 01/29/18 11:54 Albumin 3.9 g/dL (3.9-5) 01/29/18 11:54 Albumin/Globulin Ratio 1.2 % 01/29/18 11:54 HCG, Qual Negative (Negative) 01/29/18 11:59 Urine Color Straw (Yellow) 01/29/18 13:25 Urine Turbidity Clear (Clear) 01/29/18 13:25 Urine pH 5.0 (5.0-7.0) 01/29/18 13:25 Ur Specific [place] 1.018 (1.003-1.030) 01/29/18 13:25 Urine Protein <15 mg/dl mg/dL (Negative) 01/29/18 13:25 Urine Glucose (UA) >=500 mg/dL (Negative) 01/29/18 13:25 Urine Ketones 80 mg/dL (Negative) 01/29/18 13:25 Urine Blood Neg (Negative) 01/29/18 13:25 Urine Nitrite Neg (Negative) 01/29/18 13:25 Urine Bilirubin Neg (Negative) 01/29/18 13:25 Urine Urobilinogen < 2.0 mg/dL (<2.0) 01/29/18 13:25 Ur Leukocyte Esterase Neg (Negative) 01/29/18 13:25 Urine WBC (Auto) 1.0 /HPF (0.0-6.0) 01/29/18 13:25 Urine RBC (Auto) 2.0 /HPF (0.0-6.0) 01/29/18 13:25 U Epithel Cells (Auto) 2.0 /HPF (0-13.0) 01/29/18 13:25 Urine Bacteria (Auto) 1+ /HPF (Negative) 01/29/18 13:25 Urine Mucus Few /HPF 01/29/18 13:25 Urine Opiates Screen Presumptive negative 01/29/18 13:25 Urine Methadone Screen Presumptive negative 01/29/18 13:25 Ur Barbiturates Screen Presumptive negative 01/29/18 13:25 Ur Phencyclidine Scrn Presumptive negative 01/29/18 13:25 Ur Amphetamines Screen Presumptive negative 01/29/18 13:25 U Benzodiazepines Scrn Presumptive negative 01/29/18 13:25 Urine Cocaine Screen Presumptive negative 01/29/18 13:25 U Marijuana (THC) Screen Presumptive negative 01/29/18 13:25 Drugs of Abuse Note Disclamer 01/29/18 13:25 Short CBC 01/29/18 Range/Units 11:53 WBC 8.1 (4.5-11.0) K/mm3 Hgb 14.2 (10.1-14.3) gm/dl Hct 42.9 (30.3-42.9) % Plt Count 239 (140-440) K/mm3 BMP 01/29/18 01/29/18 01/29/18 11:54 14:20 17:04 Sodium 133 L 139 140 Potassium 5.1 H 4.6 4.2 Chloride 91.0 L 101.3 108.8 H Carbon Dioxide 10 L 9 L* 13 L BUN 12 12 10 Creatinine 0.7 0.7 0.6 L Glucose 518 H* 348 H 147 H Calcium 9.2 8.8 8.3 L 01/29/18 01/29/18 01/29/18 18:42 20:37 23:40 Sodium 139 142 139 Potassium 4.5 4.3 4.1 Chloride 108.0 H 108.3 H 108.8 H Carbon Dioxide 11 L 11 L 18 L D BUN 9 10 7 Creatinine 0.5 L 0.6 L 0.5 L Glucose 144 H 141 H 163 H Calcium 8.4 8.5 8.4 Liver Function 01/29/18 Range/Units 11:54 Total Bilirubin 0.80 (0.1-1.2) mg/dL AST 15 (5-40) units/L ALT 11 (7-56) units/L Alkaline Phosphatase 63 (35-129) units/L Albumin 3.9 (3.9-5) g/dL Urine 01/29/18 Range/Units 13:25 Urine Color Straw (Yellow) Urine pH 5.0 (5.0-7.0) Ur Specific [place] 1.018 (1.003-1.030) Urine Protein <15 mg/dl (Negative) mg/dL Urine Glucose (UA) >=500 (Negative) mg/dL Assessment and Plan Assessment and plan: Critical care Statement: The high probability of a clinically significant, sudden or life threatening deterioration of the [Pulmonary, cadiac, renal] system(s) required my full and direct attention, intervention and personal management. The aggregate critical care time was [35] minutes. This time is in addition to time spent performing reported procedures but includes the following: [x] Data Review and interpretation [x] Patient assessment and monitoring of vital signs [x] Documentation [x] Medication orders and management Advance Directives: Yes (Full code) VTE prophylaxis?: Chemical Plan of care discussed with patient/family: Yes - Patient Problems (1) DKA (diabetic ketoacidosis) Current Visit: Yes Status: Acute Qualifiers: Diabetes mellitus type: type 1 Diabetes mellitus complication detail: without coma Qualified Code(s): E10.10 - Type 1 diabetes mellitus with ketoacidosis without coma Plan to address problem: IV INsulin and IV Fluids DKA protocol initiated INsulin 70/30 to be adjusted upwards at time of discharge--will defer to Primary team. Monitor electrolytes (2) Type 1 diabetes Current Visit: Yes Status: Acute Qualifiers: Diabetes mellitus complication status: with neurologic complications Plan to address problem: Has Peripheral Neuropathy. Diabetes education and Diet education Adjust Insulin dosage during her stay in hospital. (3) Peripheral neuropathy Current Visit: Yes Status: Chronic Qualifiers: Peripheral neuropathy type: polyneuropathy, unspecified Qualified Code(s): G62.9 - Polyneuropathy, unspecified Plan to address problem: Cont Gabapentin (4) DVT prophylaxis Current Visit: Yes Status: Acute Plan to address problem: On Lovenox. and GI prophylaxis
[2018-01-29] MEDS ORDERED: TYLENOL PO PRN (14:48)
[2018-01-29] MEDS ORDERED: ZOFRAN IV PRN (14:48)
[2018-01-29] MEDS ORDERED: SODIUM CHLORIDE FLUSH SYRINGE 10 ML IV PRN (14:48)
[2018-01-29 14:50] LABS: BUN/Creatinine Ratio 17; Blood Urea Nitrogen 12 mg/dL (7-17); Calcium 8.8 mg/dL (8.4-10.2); Hemolysis Index 13
[2018-01-29] MEDS ORDERED: KCL 10MEQ/100ML 10 MEQ/100 ML BAG IV SCH (15:00)
[2018-01-29] MEDS ORDERED: HumuLIN R 100 UNITS in NACL 0.9% 99 ML IV SCH (15:00)
[2018-01-29] MEDS: KCL 10MEQ/100ML 10 MEQ/100 ML BAG IV SCH ×2 (17:24→17:25)
[2018-01-29 17:43] LABS: BUN/Creatinine Ratio 17; Blood Urea Nitrogen 10 mg/dL (7-17); Calcium 8.3 mg/dL (8.4-10.2); Hemolysis Index 28
[2018-01-29] MEDS ORDERED: D5NS 1,000 ML IV SCH (18:00)
[2018-01-29] MEDS: D5W/0.45% NACL/KCL 20 MEQ 20 MEQ/1,000 ML BAG IV SCH (18:44)
[2018-01-29] MEDS: DILAUDID IV PRN (18:44)
[2018-01-29 19:15] LABS: BUN/Creatinine Ratio 18; Blood Urea Nitrogen 9 mg/dL (7-17); Calcium 8.4 mg/dL (8.4-10.2); Hemolysis Index 52
[2018-01-29] MEDS: MORPHINE IV PRN (21:11)
[2018-01-29] MEDS: SODIUM CHLORIDE FLUSH SYRINGE 10 ML IV SCH (21:12)
[2018-01-29 23:08] LABS: BUN/Creatinine Ratio 17; Blood Urea Nitrogen 10 mg/dL (7-17); Calcium 8.5 mg/dL (8.4-10.2); Hemolysis Index 28
[2018-01-30 00:12] LABS: BUN/Creatinine Ratio 14; Blood Urea Nitrogen 7 mg/dL (7-17); Calcium 8.4 mg/dL (8.4-10.2); Hemolysis Index 10
[2018-01-30] MEDS: HumuLIN R 100 UNITS in NACL 0.9% 99 ML IV SCH (01:05)
[2018-01-30] MEDS: DILAUDID IV PRN ×3 (01:59→13:21)
[2018-01-30] MEDS: D5W/0.45% NACL/KCL 20 MEQ 20 MEQ/1,000 ML BAG IV SCH (02:00)
[2018-01-30] MEDS: MORPHINE IV PRN (07:42)
--- NOTE | 2018-01-30 08:37 | Progress Note ---
Assessment and Plan Assessment and plan: Patient is 22 yo woman with a history of Type 1 DM who pw N/V DKA (diabetic ketoacidosis) resolved: transition to sq insulin Type 1 diabetes mellitus: ssi Metabolic acidosis: Insulin drip, monitor bmp, anion gap Suspected severe malnutrition, BMI 17: consult Research Instrumentation Technician Peripheral neuropathy: treat supportively DVT prophylaxis: scd CCT 32 minutes History Interval history: Patient was seen and examined. Follow-up on current diagnosis. Overnight uneventful. Patient denies any chest pain, shortness breath, nausea/vomiting or severe headaches. Imaging, nursing note, chart, labs and old chart reviewed. Discussed with patient. Hospitalist Physical - Physical exam Narrative exam: GEN: WDWN, NAD, Awake, Alert, Orientated HEENT: NCAT, EOMI, PERRL, OP Clear NECK: supple, no adenopathy, no thyromegaly, no JVD CVS/HEART: RRR, normal S1S2, pulses present bilaterally CHEST/LUNGS: CTA B, Symmetrical chest expansion, good air entry bilaterally GI/Abdomen: soft, NTND, good bowel sounds, no guarding or rebound /Bladder: no suprapubic tenderness, no CVA or paraspinal tenderness EXT/Skin: no c/c/e, no obvious rash MSK: FROM x 4 Neuro: CN 2-12 grossly intact, no new focal deficits Psych: calm - Constitutional Vitals: Temp Pulse Resp BP Pulse Ox 98.0 F 108 H 20 109/64 98 01/30/18 08:00 01/30/18 06:30 01/30/18 06:30 01/30/18 06:30 01/30/18 06:30 General appearance: Present: no acute distress, well-nourished Results - Labs CBC & Chem 7: 01/29/18 11:53 01/30/18 07:37 Labs: Laboratory Last Values WBC 8.1 K/mm3 (4.5-11.0) 01/29/18 11:53 RBC 4.94 M/mm3 (3.65-5.03) 01/29/18 11:53 Hgb 14.2 gm/dl (10.1-14.3) 01/29/18 11:53 Hct 42.9 % (30.3-42.9) 01/29/18 11:53 MCV 87 fl (79-97) 01/29/18 11:53 MCH 29 pg (28-32) 01/29/18 11:53 MCHC 33 % (30-34) 01/29/18 11:53 RDW 16.3 % (13.2-15.2) H 01/29/18 11:53 Plt Count 239 K/mm3 (140-440) 01/29/18 11:53 Lymph % (Auto) 22.5 % (13.4-35.0) 01/29/18 11:53 Mckean % (Auto) 3.5 % (0.0-7.3) 01/29/18 11:53 Eos % (Auto) 0.5 % (0.0-4.3) 01/29/18 11:53 Baso % (Auto) 0.8 % (0.0-1.8) 01/29/18 11:53 Lymph # 1.8 K/mm3 (1.2-5.4) 01/29/18 11:53 Mckean # 0.3 K/mm3 (0.0-0.8) 01/29/18 11:53 Eos # 0.0 K/mm3 (0.0-0.4) 01/29/18 11:53 Baso # 0.1 K/mm3 (0.0-0.1) 01/29/18 11:53 Seg Neutrophils % 72.7 % (40.0-70.0) H 01/29/18 11:53 Seg Neutrophils # 5.9 K/mm3 (1.8-7.7) 01/29/18 11:53 VBG pH 7.241 (7.320-7.420) L 01/29/18 11:54 Sodium 139 mmol/L (137-145) 01/29/18 23:40 Potassium 4.1 mmol/L (3.6-5.0) 01/29/18 23:40 Chloride 108.8 mmol/L (98-107) H 01/29/18 23:40 Carbon Dioxide 18 mmol/L (22-30) L D 01/29/18 23:40 Anion Gap 16 mmol/L 01/29/18 23:40 BUN 7 mg/dL (7-17) 01/29/18 23:40 Creatinine 0.5 mg/dL (0.7-1.2) L 01/29/18 23:40 Estimated GFR > 60 ml/min 01/29/18 23:40 BUN/Creatinine Ratio 14 % 01/29/18 23:40 Glucose 163 mg/dL (65-100) H 01/29/18 23:40 POC Glucose 134 (70-105) H 01/30/18 08:16 Hemoglobin A1c 13.7 % (4-6) H 01/29/18 15:05 Calcium 8.4 mg/dL (8.4-10.2) 01/29/18 23:40 Phosphorus 3.80 mg/dL (2.5-4.5) D 01/29/18 15:05 Magnesium 1.90 mg/dL (1.7-2.3) 01/29/18 15:05 Total Bilirubin 0.80 mg/dL (0.1-1.2) 01/29/18 11:54 AST 15 units/L (5-40) 01/29/18 11:54 ALT 11 units/L (7-56) 01/29/18 11:54 Alkaline Phosphatase 63 units/L (35-129) 01/29/18 11:54 Total Protein 7.1 g/dL (6.3-8.2) 01/29/18 11:54 Albumin 3.9 g/dL (3.9-5) 01/29/18 11:54 Albumin/Globulin Ratio 1.2 % 01/29/18 11:54 HCG, Qual Negative (Negative) 01/29/18 11:59 Urine Color Straw (Yellow) 01/29/18 13:25 Urine Turbidity Clear (Clear) 01/29/18 13:25 Urine pH 5.0 (5.0-7.0) 01/29/18 13:25 Ur Specific [place] 1.018 (1.003-1.030) 01/29/18 13:25 Urine Protein <15 mg/dl mg/dL (Negative) 01/29/18 13:25 Urine Glucose (UA) >=500 mg/dL (Negative) 01/29/18 13:25 Urine Ketones 80 mg/dL (Negative) 01/29/18 13:25 Urine Blood Neg (Negative) 01/29/18 13:25 Urine Nitrite Neg (Negative) 01/29/18 13:25 Urine Bilirubin Neg (Negative) 01/29/18 13:25 Urine Urobilinogen < 2.0 mg/dL (<2.0) 01/29/18 13:25 Ur Leukocyte Esterase Neg (Negative) 01/29/18 13:25 Urine WBC (Auto) 1.0 /HPF (0.0-6.0) 01/29/18 13:25 Urine RBC (Auto) 2.0 /HPF (0.0-6.0) 01/29/18 13:25 U Epithel Cells (Auto) 2.0 /HPF (0-13.0) 01/29/18 13:25 Urine Bacteria (Auto) 1+ /HPF (Negative) 01/29/18 13:25 Urine Mucus Few /HPF 01/29/18 13:25 Urine Opiates Screen Presumptive negative 01/29/18 13:25 Urine Methadone Screen Presumptive negative 01/29/18 13:25 Ur Barbiturates Screen Presumptive negative 01/29/18 13:25 Ur Phencyclidine Scrn Presumptive negative 01/29/18 13:25 Ur Amphetamines Screen Presumptive negative 01/29/18 13:25 U Benzodiazepines Scrn Presumptive negative 01/29/18 13:25 Urine Cocaine Screen Presumptive negative 01/29/18 13:25 U Marijuana (THC) Screen Presumptive negative 01/29/18 13:25 Drugs of Abuse Note Disclamer 01/29/18 13:25
[2018-01-30 09:04] LABS: BUN/Creatinine Ratio 15; Blood Urea Nitrogen 6 mg/dL (7-17); Calcium 8.5 mg/dL (8.4-10.2); Hemolysis Index 3
[2018-01-30] MEDS: LOVENOX SUB-Q SCH (09:26)
[2018-01-30] MEDS: SODIUM CHLORIDE FLUSH SYRINGE 10 ML IV SCH ×2 (09:26→21:13)
[2018-01-30] MEDS ORDERED: LOVENOX SUB-Q SCH (10:00)
--- NOTE | 2018-01-30 10:58 | Consultation ---
History of Present Illness - Reason for Consult Consult date: 01/30/18 DKA Requesting physician: STANLEY CUTLER - History of Present Illness 22 y/o female admitted with DKA and leg pain, possibly neuropathic in nature. Started on insulin drip and kept NPO. Anion Gap is now closed. Pain still remains. Past History Past Medical History: diabetes Medications and Allergies Allergies Allergy/AdvReac Type Severity Reaction Status Date / Time No Known Allergies Allergy Verified 11/19/17 09:11 Home Medications Medication Instructions Recorded Confirmed Last Taken Type Insulin NPH/Regular [Novolin 70/30] 20 unit SQ TIDAC 01/30/18 01/30/18 01/29/18 History Active Meds: Active Medications Acetaminophen (Tylenol) 650 mg PO Q4H PRN PRN Reason: Pain MILD(1-3)/Fever >100.5/LICONA Dextrose (D50w (25gm) Syringe) 0 ml IV PRN PRN PRN Reason: Hypoglycemia Enoxaparin Sodium (Lovenox) 40 mg SUB-Q QDAY@1000 JAYJAY Last Admin: 01/30/18 09:26 Dose: 40 mg Hydromorphone HCl (Dilaudid) 0.5 mg IV Q3H PRN PRN Reason: Pain , Severe (7-10) Last Admin: 01/30/18 09:26 Dose: 0.5 mg Insulin Human Regular 100 (units/ Sodium Chloride) 100 mls @ 5 mls/hr IV TITR JAYJAY; Protocol Last Titration: 01/30/18 07:12 Dose: 1.5 units/hr, 1.5 mls/hr Potassium Chloride/Dextrose/Sod Cl (D5w/0.45% Nacl/Kcl 20 Meq) 20 meq in 1,000 mls @ 125 mls/hr IV DIRECT JAYJAY Last Admin: 01/30/18 02:00 Dose: 125 mls/hr Dextrose/Sodium Chloride (D5ns) 1,000 mls @ 125 mls/hr IV DIRECT JAYJAY Morphine Sulfate (Morphine) 2 mg IV Q4H PRN PRN Reason: Pain, Moderate (4-6) Last Admin: 01/30/18 07:42 Dose: 2 mg Ondansetron HCl (Zofran) 4 mg IV Q8H PRN PRN Reason: Nausea And Vomiting Last Admin: 01/29/18 16:30 Dose: 4 mg Oxycodone/Acetaminophen (Percocet 5/325) 1 tab PO Q6H PRN PRN Reason: Pain, Moderate (4-6) Sodium Chloride (Sodium Chloride Flush Syringe 10 Ml) 10 ml IV BID JAYJAY Last Admin: 01/30/18 09:26 Dose: 10 ml Review of Systems All systems: negative Exam - Constitutional Vitals: Temp Pulse Resp BP Pulse Ox 98.0 F 105 H 12 131/94 100 01/30/18 08:00 01/30/18 10:30 01/30/18 10:30 01/30/18 10:30 01/30/18 10:30 General appearance: Present: no acute distress - EENT Eyes: Present: PERRL, EOM intact ENT: hearing intact, clear oral mucosa - Neck Neck: Present: supple, normal ROM - Respiratory Respiratory effort: normal Respiratory: bilateral: CTA Results - Labs CBC & Chem 7: 01/29/18 11:53 01/30/18 07:37 Labs: Abnormal lab results 01/29/18 01/29/18 01/29/18 Range/Units 11:40 11:53 11:54 RDW 16.3 H (13.2-15.2) % Seg Neutrophils % 72.7 H (40.0-70.0) % VBG pH (7.320-7.420) Sodium 133 L (137-145) mmol/L Potassium 5.1 H (3.6-5.0) mmol/L Chloride 91.0 L (98-107) mmol/L Carbon Dioxide 10 L (22-30) mmol/L BUN (7-17) mg/dL Creatinine (0.7-1.2) mg/dL Glucose 518 H* (65-100) mg/dL POC Glucose 450 H (70-105) Hemoglobin A1c (4-6) % Calcium (8.4-10.2) mg/dL Phosphorus (2.5-4.5) mg/dL 01/29/18 01/29/18 01/29/18 Range/Units 11:54 11:54 14:07 RDW (13.2-15.2) % Seg Neutrophils % (40.0-70.0) % VBG pH 7.241 L (7.320-7.420) Sodium (137-145) mmol/L Potassium (3.6-5.0) mmol/L Chloride (98-107) mmol/L Carbon Dioxide (22-30) mmol/L BUN (7-17) mg/dL Creatinine (0.7-1.2) mg/dL Glucose (65-100) mg/dL POC Glucose 348 H (70-105) Hemoglobin A1c (4-6) % Calcium (8.4-10.2) mg/dL Phosphorus 5.00 H (2.5-4.5) mg/dL 01/29/18 01/29/18 01/29/18 Range/Units 14:20 15:04 15:05 RDW (13.2-15.2) % Seg Neutrophils % (40.0-70.0) % VBG pH (7.320-7.420) Sodium (137-145) mmol/L Potassium (3.6-5.0) mmol/L Chloride (98-107) mmol/L Carbon Dioxide 9 L* (22-30) mmol/L BUN (7-17) mg/dL Creatinine (0.7-1.2) mg/dL Glucose 348 H (65-100) mg/dL POC Glucose 262 H (70-105) Hemoglobin A1c 13.7 H (4-6) % Calcium (8.4-10.2) mg/dL Phosphorus (2.5-4.5) mg/dL 01/29/18 01/29/18 01/29/18 Range/Units 16:50 17:04 18:42 RDW (13.2-15.2) % Seg Neutrophils % (40.0-70.0) % VBG pH (7.320-7.420) Sodium (137-145) mmol/L Potassium (3.6-5.0) mmol/L Chloride 108.8 H 108.0 H (98-107) mmol/L Carbon Dioxide 13 L 11 L (22-30) mmol/L BUN (7-17) mg/dL Creatinine 0.6 L 0.5 L (0.7-1.2) mg/dL Glucose 147 H 144 H (65-100) mg/dL POC Glucose 167 H (70-105) Hemoglobin A1c (4-6) % Calcium 8.3 L (8.4-10.2) mg/dL Phosphorus (2.5-4.5) mg/dL 01/29/18 01/29/18 01/29/18 Range/Units 18:52 20:02 20:37 RDW (13.2-15.2) % Seg Neutrophils % (40.0-70.0) % VBG pH (7.320-7.420) Sodium (137-145) mmol/L Potassium (3.6-5.0) mmol/L Chloride 108.3 H (98-107) mmol/L Carbon Dioxide 11 L (22-30) mmol/L BUN (7-17) mg/dL Creatinine 0.6 L (0.7-1.2) mg/dL Glucose 141 H (65-100) mg/dL POC Glucose 160 H 154 H (70-105) Hemoglobin A1c (4-6) % Calcium (8.4-10.2) mg/dL Phosphorus (2.5-4.5) mg/dL 01/29/18 01/29/18 01/29/18 Range/Units 20:59 22:11 23:06 RDW (13.2-15.2) % Seg Neutrophils % (40.0-70.0) % VBG pH (7.320-7.420) Sodium (137-145) mmol/L Potassium (3.6-5.0) mmol/L Chloride (98-107) mmol/L Carbon Dioxide (22-30) mmol/L BUN (7-17) mg/dL Creatinine (0.7-1.2) mg/dL Glucose (65-100) mg/dL POC Glucose 162 H 149 H 135 H (70-105) Hemoglobin A1c (4-6) % Calcium (8.4-10.2) mg/dL Phosphorus (2.5-4.5) mg/dL 01/29/18 01/29/18 01/30/18 Range/Units 23:40 23:56 01:02 RDW (13.2-15.2) % Seg Neutrophils % (40.0-70.0) % VBG pH (7.320-7.420) Sodium (137-145) mmol/L Potassium (3.6-5.0) mmol/L Chloride 108.8 H (98-107) mmol/L Carbon Dioxide 18 L D (22-30) mmol/L BUN (7-17) mg/dL Creatinine 0.5 L (0.7-1.2) mg/dL Glucose 163 H (65-100) mg/dL POC Glucose 196 H 151 H (70-105) Hemoglobin A1c (4-6) % Calcium (8.4-10.2) mg/dL Phosphorus (2.5-4.5) mg/dL 01/30/18 01/30/18 01/30/18 Range/Units 02:05 03:01 04:03 RDW (13.2-15.2) % Seg Neutrophils % (40.0-70.0) % VBG pH (7.320-7.420) Sodium (137-145) mmol/L Potassium (3.6-5.0) mmol/L Chloride (98-107) mmol/L Carbon Dioxide (22-30) mmol/L BUN (7-17) mg/dL Creatinine (0.7-1.2) mg/dL Glucose (65-100) mg/dL POC Glucose 121 H 137 H 144 H (70-105) Hemoglobin A1c (4-6) % Calcium (8.4-10.2) mg/dL Phosphorus (2.5-4.5) mg/dL 01/30/18 01/30/18 01/30/18 Range/Units 05:13 05:57 07:12 RDW (13.2-15.2) % Seg Neutrophils % (40.0-70.0) % VBG pH (7.320-7.420) Sodium (137-145) mmol/L Potassium (3.6-5.0) mmol/L Chloride (98-107) mmol/L Carbon Dioxide (22-30) mmol/L BUN (7-17) mg/dL Creatinine (0.7-1.2) mg/dL Glucose (65-100) mg/dL POC Glucose 176 H 147 H 118 H (70-105) Hemoglobin A1c (4-6) % Calcium (8.4-10.2) mg/dL Phosphorus (2.5-4.5) mg/dL 01/30/18 01/30/18 01/30/18 Range/Units 07:37 08:16 09:09 RDW (13.2-15.2) % Seg Neutrophils % (40.0-70.0) % VBG pH (7.320-7.420) Sodium (137-145) mmol/L Potassium (3.6-5.0) mmol/L Chloride 111.2 H (98-107) mmol/L Carbon Dioxide 20 L (22-30) mmol/L BUN 6 L (7-17) mg/dL Creatinine 0.4 L (0.7-1.2) mg/dL Glucose 130 H (65-100) mg/dL POC Glucose 134 H 138 H (70-105) Hemoglobin A1c (4-6) % Calcium (8.4-10.2) mg/dL Phosphorus (2.5-4.5) mg/dL 01/30/18 Range/Units 10:09 RDW (13.2-15.2) % Seg Neutrophils % (40.0-70.0) % VBG pH (7.320-7.420) Sodium (137-145) mmol/L Potassium (3.6-5.0) mmol/L Chloride (98-107) mmol/L Carbon Dioxide (22-30) mmol/L BUN (7-17) mg/dL Creatinine (0.7-1.2) mg/dL Glucose (65-100) mg/dL POC Glucose 142 H (70-105) Hemoglobin A1c (4-6) % Calcium (8.4-10.2) mg/dL Phosphorus (2.5-4.5) mg/dL Assessment and Plan 22 y/o with diabetic ketoacidosis and leg pain for 2 weeks. 1. Anion Gap closed. Restart home dose of long acting insulin and then stop the drip. Feed patient Consistent Carbohydrate diet. 2. Leg pain could be neuropathic in nature, consider lyrica vs neurotin therapy. 3. Stable for transfer out of unit.
[2018-01-30] MEDS ORDERED: REGLAN IV PRN (12:01)
[2018-01-30] MEDS ORDERED: D50W (25GM) Syringe IV PRN (12:04)
[2018-01-30] MEDS: NEURONTIN PO SCH ×2 (14:09→21:12)
[2018-01-30] MEDS: HumaLOG SUB-Q SCH (17:32)
[2018-01-30] MEDS: PERCOCET 5/325 PO PRN (21:12)
[2018-01-31] MEDS: HumaLOG SUB-Q SCH ×4 (01:56→16:30)
[2018-01-31] MEDS: DILAUDID IV PRN (03:50)
[2018-01-31 06:06] LABS: Hematocrit 36.9 % (30.3-42.9); Mean Corpuscular HGB Conc 33 % (30-34); Mean Corpuscular Hemoglobin 28 pg (28-32); Mean Corpuscular Volume 87 fl (79-97); Platelet Count 172 K/mm3 (140-440); Red Blood Count 4.26 M/mm3 (3.65-5.03); Red Cell Distribution Width 16.1 % (13.2-15.2)
[2018-01-31 06:28] LABS: BUN/Creatinine Ratio 15; Blood Urea Nitrogen 6 mg/dL (7-17); Calcium 8.3 mg/dL (8.4-10.2); Hemolysis Index 3
[2018-01-31] MEDS: LOVENOX SUB-Q SCH (09:48)
[2018-01-31] MEDS: PERCOCET 5/325 PO PRN (09:49)
[2018-01-31] MEDS: NEURONTIN PO SCH (09:49)
[2018-01-31] MEDS: SODIUM CHLORIDE FLUSH SYRINGE 10 ML IV SCH (13:07)
--- NOTE | 2018-01-31 14:55 | Discharge Summary ---
Providers - Providers Date of Admission: 01/29/18 14:48 Date of discharge: 01/31/18 Attending physician: JAMA TSAI Primary care physician: PETROLEUM REFINERY LABORER Hospitalization Condition: Stable Hospital course: Patient is 22 yo woman with a history of Type 1 DM who pw N/V DKA (diabetic ketoacidosis) resolved: transition to sq insulin N/V with suspected Gastroparesis: discussed dimitri usage with each meal (dimitri tea, diet dimitri aida, dimitri roots), d/w reglan SE and risk, she will try short term Type 1 diabetes mellitus: ssi Metabolic acidosis: Insulin drip, monitor bmp, anion gap Suspected severe malnutrition, BMI 17: consult User Experience Team Lead Peripheral neuropathy BLE suspected: started on gabapentin DVT prophylaxis: scd Disposition: TO HOME OR SELFCARE Time spent for discharge: 32 minutes Core Measure Documentation - Palliative Care Palliative Care/ Comfort Measures: Not Applicable - Core Measures Any of the following diagnoses?: none - VTE Discharge Requirements Deep Vein Thrombosis/Pulmonary Embolism Present on Admission: No Has pt received <5 days of overlap therapy or INR<2.0: No Anticoagulant overlap therapy prescribed at discharge: No Contraindication No Overlap Therapy order at DC: Not Indicated Exam - Physical Exam Narrative exam: GEN: WDWN, NAD, Awake, Alert, Orientated HEENT: NCAT, EOMI, PERRL, OP Clear NECK: supple, no adenopathy, no thyromegaly, no JVD CVS/HEART: RRR, normal S1S2, pulses present bilaterally CHEST/LUNGS: CTA B, Symmetrical chest expansion, good air entry bilaterally GI/Abdomen: soft, NTND, good bowel sounds, no guarding or rebound /Bladder: no suprapubic tenderness, no CVA or paraspinal tenderness EXT/Skin: no c/c/e, no obvious rash MSK: FROM x 4 Neuro: CN 2-12 grossly intact, no new focal deficits Psych: calm - Constitutional Vitals: Temp Pulse Resp BP Pulse Ox 99.2 F 49 L 20 133/58 99 01/31/18 12:04 01/31/18 12:04 01/31/18 12:04 01/31/18 12:04 01/31/18 12:04 Plan Activity: other (no strenous activity until cleared by PCP) Diet: diabetic Special Instructions: record blood sugar diary (before meals three times a day) Follow up with: PRIMARY CARE, [Primary Care Provider] - 3-5 Days MATTHIAS PAZ [Staff Physician] - 7 Days Prescriptions: Gabapentin [Neurontin] 300 mg PO BID #60 capsule Insulin NPH/Regular [NovoLIN 70/30] 15 unit SUB-Q BIDDIAB #60 units Insulin Regular, Human [Novolin R] 1 units SUB-Q AC PRN #1 vial PRN Reason: Hyperglycemia Metoclopramide [Reglan ORAL LIQ] 10 mg PO TIDWM PRN 15 Days #30 oral.liqd PRN Reason: Nausea oxyCODONE /ACETAMINOPHEN [Percocet 5/325 mg] 1 tab PO Q6H PRN #15 tablet PRN Reason: Pain , Severe (7-10)
[2018-01-31 18:04] VITALS: BP 138/101
== END 2018-01-31 17:50 | disposition home or self-care (01) | DRG 637 ==
LOC: ED 11:36 → CC1 14:48 → 3A 01-30 14:35
PROVIDERS: ADMIT Internal Medicine; ATTEND Internal Medicine
DX: E10.10 Type 1 diabetes mellitus with ketoacidosis without coma (principal); E43 Unspecified severe protein-calorie malnutrition; Z68.1 Body mass index [BMI] 19.9 or less, adult; E10.43 Type 1 diabetes mellitus with diabetic autonomic (poly)neuropathy; K31.84 Gastroparesis; E10.42 Type 1 diabetes mellitus with diabetic polyneuropathy; E86.0 Dehydration; Z79.4 Long term (current) use of insulin; Z82.49 Family history of ischemic heart disease and other diseases of the circulatory system
CPT/HCPCS: 36415; 80048; 80053; 80307; 81001; 82805; 82962; 83036; 83735; 84100; 84703; 85025; 85027; 96361; 96374; 96375; J1170; J1650; J1815; J2270; J2405; J7030

== ENCOUNTER 2018-06-01 10:23 | Emergency (ER) | payer SELFPAY ==
[2018-06-01 10:56] LABS: Basophils % (Auto) 0.8 % (0.0-1.8); Eosinophils % (Auto) 0.8 % (0.0-4.3); Hematocrit 39.8 % (30.3-42.9); Hemoglobin 13.5 gm/dl (10.1-14.3); Lymphocytes % (Auto) 32.3 % (13.4-35.0); Mean Corpuscular HGB Conc 34 % (30-34); Mean Corpuscular Volume 87 fl (79-97); Monocytes # (Auto) 0.4 K/mm3 (0.0-0.8); Monocytes % (Auto) 5.9 % (0.0-7.3); Platelet Count 292 K/mm3 (140-440); Red Blood Count 4.58 M/mm3 (3.65-5.03); Red Cell Distribution Width 14.9 % (13.2-15.2)
[2018-06-01 11:10] LABS: BUN/Creatinine Ratio 22; Blood Urea Nitrogen 11 mg/dL (7-17); Calcium 9.8 mg/dL (8.4-10.2); Hemolysis Index 8
[2018-06-01] MEDS ORDERED: REGLAN IV ONE (11:12)
[2018-06-01] MEDS ORDERED: PEPCID IV ONE (11:12)
[2018-06-01] MEDS ORDERED: NACL 0.9% 1000 ML 1,000 ML IV ONE (11:12)
[2018-06-01] MEDS ORDERED: SUBLIMAZE IV ONE (11:13)
[2018-06-01 11:27] LABS: Bacteria,Urine 1+ /HPF (Negative); Bilirubin,Urine NEG (Negative); Blood,Urine SM (Negative); Color,Urine Yellow (Yellow); Hyaline Casts,Urine 3 /LPF; Protein,Urine <15 mg/dL mg/dL (Negative); Urobilinogen,Urine < 2.0 mg/dL (<2.0)
[2018-06-01] MEDS ORDERED: ROCEPHIN/NS 1 GM/50 ML 1 GM/50 ML BAG IV ONE (11:34)
--- NOTE | 2018-06-01 11:35 | Emergency Department Report ---
ED General Adult HPI - General Chief complaint: Abdominal Pain Stated complaint: ABD PAIN Time Seen by Provider: 06/01/18 11:07 Source: patient, EMS Mode of arrival: Ambulatory Limitations: No Limitations - History of Present Illness Initial comments: Patient is a 22-year-old female past medical history of type I diabetes who presents with abdominal pain nausea vomiting and diarrhea. Patient states that she is been having abdominal pain for a week her pain as a 10 out of 10. It all throughout her belly but it makes her pain better and nothing makes it worse. Patient states that she has not been able tolerate by mouth has been vomiting a lot. She's been taking her insulin but she has no primary care doctor. She takes her insulin daily and her blood sugars run around 150-250. Severity scale (0 -10): 10 - Related Data Previous Rx's Medication Instructions Recorded Last Taken Type Acetaminophen [Acetaminophen TAB] 650 mg PO Q4H PRN #15 tablet 01/31/18 Unknown Rx Gabapentin [Neurontin] 300 mg PO BID #60 capsule 01/31/18 Unknown Rx Insulin NPH/Regular [NovoLIN 70/30] 15 unit SUB-Q BIDDIAB #60 units 01/31/18 Unknown Rx Insulin Regular, Human [Novolin R] 1 units SUB-Q AC PRN #1 vial 01/31/18 Unknown Rx Metoclopramide [Reglan ORAL LIQ] 10 mg PO TIDWM PRN 15 Days #30 01/31/18 Unknown Rx oral.liqd oxyCODONE /ACETAMINOPHEN [Percocet 1 tab PO Q6H PRN #15 tablet 01/31/18 Unknown Rx 5/325 mg] Ibuprofen [Motrin] 600 mg PO Q8H PRN #30 tablet 02/04/18 Unknown Rx Promethazine [Phenergan TAB] 25 mg PO Q6HR PRN #20 tab 06/01/18 Unknown Rx traMADol [Ultram 50 MG tab] 50 mg PO Q6HR PRN #10 tablet 06/01/18 Unknown Rx Allergies Allergy/AdvReac Type Severity Reaction Status Date / Time No Known Allergies Allergy Verified 11/19/17 09:11 ED Review of Systems ROS: Stated complaint: ABD PAIN Other details as noted in HPI Constitutional: denies: chills, fever Eyes: denies: eye pain, eye discharge, vision change ENT: denies: ear pain, throat pain Respiratory: denies: cough, shortness of breath, wheezing Cardiovascular: denies: chest pain, palpitations Endocrine: no symptoms reported Gastrointestinal: abdominal pain, nausea, vomiting. denies: diarrhea Genitourinary: denies: urgency, dysuria, discharge Musculoskeletal: denies: back pain, joint swelling, arthralgia Skin: denies: rash, lesions Neurological: denies: headache, weakness, paresthesias Psychiatric: denies: anxiety, depression Hematological/Lymphatic: denies: easy bleeding, easy bruising ED Past Medical Hx - Past Medical History Previous Medical History?: Yes Hx Congestive Heart Failure: No Hx Diabetes: Yes Hx Asthma: No Hx COPD: No - Surgical History Past Surgical History?: No - Social History Smoking Status: Never Smoker Substance Use Type: None - Medications Home Medications: Home Medications Medication Instructions Recorded Confirmed Last Taken Type Acetaminophen [Acetaminophen TAB] 650 mg PO Q4H PRN #15 tablet 01/31/18 Unknown Rx Gabapentin [Neurontin] 300 mg PO BID #60 capsule 01/31/18 Unknown Rx Insulin NPH/Regular [NovoLIN 70/30] 15 unit SUB-Q BIDDIAB #60 units 01/31/18 Unknown Rx Insulin Regular, Human [Novolin R] 1 units SUB-Q AC PRN #1 vial 01/31/18 Unknown Rx Metoclopramide [Reglan ORAL LIQ] 10 mg PO TIDWM PRN 15 Days #30 01/31/18 Unknown Rx oral.liqd oxyCODONE /ACETAMINOPHEN [Percocet 1 tab PO Q6H PRN #15 tablet 01/31/18 Unknown Rx 5/325 mg] Ibuprofen [Motrin] 600 mg PO Q8H PRN #30 tablet 02/04/18 Unknown Rx Promethazine [Phenergan TAB] 25 mg PO Q6HR PRN #20 tab 06/01/18 Unknown Rx traMADol [Ultram 50 MG tab] 50 mg PO Q6HR PRN #10 tablet 06/01/18 Unknown Rx ED Physical Exam - General Limitations: No Limitations General appearance: alert, in no apparent distress - Head Head exam: Present: atraumatic, normocephalic - Eye Eye exam: Present: normal appearance - ENT ENT exam: Present: mucous membranes moist - Neck Neck exam: Present: normal inspection - Respiratory Respiratory exam: Present: normal lung sounds bilaterally. Absent: respiratory distress - Cardiovascular Cardiovascular Exam: Present: regular rate, normal rhythm. Absent: systolic murmur, diastolic murmur, rubs, gallop - GI/Abdominal GI/Abdominal exam: Present: soft, normal bowel sounds - Extremities Exam Extremities exam: Present: normal inspection - Back Exam Back exam: Present: normal inspection - Neurological Exam Neurological exam: Present: alert, oriented X3 - Psychiatric Psychiatric exam: Present: normal affect, normal mood - Skin Skin exam: Present: warm, dry, intact, normal color. Absent: rash ED Course Vital Signs 06/01/18 06/01/18 10:28 13:24 Temperature 97.8 F 98.0 F Pulse Rate 135 H 121 H Respiratory 20 16 Rate Blood Pressure 123/80 121/69 [Right] O2 Sat by Pulse 100 98 Oximetry ED Medical Decision Making - Lab Data Result diagrams: 06/01/18 10:35 06/01/18 10:35 Lab Results 06/01/18 06/01/18 06/01/18 Range/Units 10:35 10:35 10:35 WBC 6.2 (4.5-11.0) K/mm3 RBC 4.58 (3.65-5.03) M/mm3 Hgb 13.5 (10.1-14.3) gm/dl Hct 39.8 (30.3-42.9) % MCV 87 (79-97) fl MCH 30 (28-32) pg MCHC 34 (30-34) % RDW 14.9 (13.2-15.2) % Plt Count 292 (140-440) K/mm3 Lymph % (Auto) 32.3 (13.4-35.0) % [place] % (Auto) 5.9 (0.0-7.3) % Eos % (Auto) 0.8 (0.0-4.3) % Baso % (Auto) 0.8 (0.0-1.8) % Lymph # 2.0 (1.2-5.4) K/mm3 Weber # 0.4 (0.0-0.8) K/mm3 Eos # 0.0 (0.0-0.4) K/mm3 Baso # 0.0 (0.0-0.1) K/mm3 Seg Neutrophils % 60.2 (40.0-70.0) % Seg Neutrophils # 3.8 (1.8-7.7) K/mm3 VBG pH (7.320-7.420) Sodium 137 (137-145) mmol/L Potassium 4.6 (3.6-5.0) mmol/L Chloride 94.1 L (98-107) mmol/L Carbon Dioxide 20 L (22-30) mmol/L Anion Gap 28 mmol/L BUN 11 (7-17) mg/dL Creatinine 0.5 L (0.7-1.2) mg/dL Estimated GFR > 60 ml/min BUN/Creatinine Ratio 22 % Glucose 318 H (65-100) mg/dL POC Glucose 305 H (70-105) Calcium 9.8 (8.4-10.2) mg/dL Urine Color (Yellow) Urine Turbidity (Clear) Urine pH (5.0-7.0) Ur Specific [place] (1.003-1.030) Urine Protein (Negative) mg/dL Urine Glucose (UA) (Negative) mg/dL Urine Ketones (Negative) mg/dL Urine Blood (Negative) Urine Nitrite (Negative) Urine Bilirubin (Negative) Urine Urobilinogen (<2.0) mg/dL Ur Leukocyte Esterase (Negative) Urine WBC (Auto) (0.0-6.0) /HPF Urine RBC (Auto) (0.0-6.0) /HPF U Epithel Cells (Auto) (0-13.0) /HPF Urine Bacteria (Auto) (Negative) /HPF Hyaline Casts /LPF 06/01/18 06/01/18 Range/Units 10:35 10:59 WBC (4.5-11.0) K/mm3 RBC (3.65-5.03) M/mm3 Hgb (10.1-14.3) gm/dl Hct (30.3-42.9) % MCV (79-97) fl MCH (28-32) pg MCHC (30-34) % RDW (13.2-15.2) % Plt Count (140-440) K/mm3 Lymph % (Auto) (13.4-35.0) % [place] % (Auto) (0.0-7.3) % Eos % (Auto) (0.0-4.3) % Baso % (Auto) (0.0-1.8) % Lymph # (1.2-5.4) K/mm3 [place] # (0.0-0.8) K/mm3 Eos # (0.0-0.4) K/mm3 Baso # (0.0-0.1) K/mm3 Seg Neutrophils % (40.0-70.0) % Seg Neutrophils # (1.8-7.7) K/mm3 VBG pH 7.354 (7.320-7.420) Sodium (137-145) mmol/L Potassium (3.6-5.0) mmol/L Chloride (98-107) mmol/L Carbon Dioxide (22-30) mmol/L Anion Gap mmol/L BUN (7-17) mg/dL Creatinine (0.7-1.2) mg/dL Estimated GFR ml/min BUN/Creatinine Ratio % Glucose (65-100) mg/dL POC Glucose (70-105) Calcium (8.4-10.2) mg/dL Urine Color Yellow (Yellow) Urine Turbidity Slightly-cloudy (Clear) Urine pH 6.0 (5.0-7.0) Ur Specific [place] 1.017 (1.003-1.030) Urine Protein <15 mg/dl (Negative) mg/dL Urine Glucose (UA) >=500 (Negative) mg/dL Urine Ketones 80 (Negative) mg/dL Urine Blood Sm (Negative) Urine Nitrite Neg (Negative) Urine Bilirubin Neg (Negative) Urine Urobilinogen < 2.0 (<2.0) mg/dL Ur Leukocyte Esterase Lg (Negative) Urine WBC (Auto) 180.0 H (0.0-6.0) /HPF Urine RBC (Auto) 3.0 (0.0-6.0) /HPF U Epithel Cells (Auto) 1.0 (0-13.0) /HPF Urine Bacteria (Auto) 1+ (Negative) /HPF Hyaline Casts 3 /LPF - Medical Decision Making Cdx: Gastritis ddx: Gastroparesis, Hyperglycemia, DKA I will get cbc, bmp, IV fluids, IV insulin, ua and IV antibiotics. Patient is feeling better lab work only showed hyperglycemia I will send patient home with f/u with a PCP. Critical care attestation.: If time is entered above; I have spent that time in minutes in the direct care of this critically ill patient, excluding procedure time. ED Disposition Clinical Impression: Hyperglycemia, Generalized abdominal pain Disposition: DC-01 TO HOME OR SELFCARE Is pt being admited?: No Does the pt Need Aspirin: No Condition: Stable Instructions: Abdominal Pain (ED), Diabetes Mellitus Type 1 in Adults (ED) Prescriptions: Promethazine [Phenergan TAB] 25 mg PO Q6HR PRN #20 tab PRN Reason: Nausea traMADol [Ultram 50 MG tab] 50 mg PO Q6HR PRN #10 tablet PRN Reason: Pain Referrals: MATTHIAS PAZ MD [Staff Physician] - 3-5 Days
[2018-06-01] MEDS ORDERED: LANTUS SUB-Q ONE (11:38)
[2018-06-01 13:25] VITALS: BP 121/69
[2018-06-01] MEDS ORDERED: HumuLIN R IV ONE (13:52)
== END 2018-06-01 15:38 | disposition home or self-care (01) ==
LOC: ED 10:23
DX: E10.65 Type 1 diabetes mellitus with hyperglycemia (principal); R11.2 Nausea with vomiting, unspecified; R19.7 Diarrhea, unspecified; Z79.4 Long term (current) use of insulin
CPT/HCPCS: 36415; 80048; 81001; 82805; 82962; 85025; 96365; 96372; 96375; 99284; J0696; J2765; J3010; J7030; J1815

== ENCOUNTER 2018-06-29 19:24 | Emergency (ER) | payer OTHER ==
--- NOTE | 2018-06-29 19:25 | Emergency Department Report ---
Stated Complaint: ABD PAIN Time Seen by Provider: 06/29/18 19:25 - HPI History of Present Illness: HYSTERICAL IN TRIAGE PER EMS SHE WAS IN [facility] BUT THEN IN AMBULANCE WAS OK NO MEDS GIVEN NOT ACTIVELY VOMITING HX GASTROPARESIS [facility] ORDERED MSE COMPLETED MSE screening note: Focused history and physical exam performed. Due to findings the following was ordered: ED Disposition for MSE Condition: Stable
[2018-06-29] MEDS ORDERED: NACL 0.9% 1000 ML 1,000 ML IV ONE (20:07)
[2018-06-29 20:12] LABS: Hematocrit 36.8 % (30.3-42.9); Hemoglobin 12.2 gm/dl (10.1-14.3); Mean Corpuscular HGB Conc 33 % (30-34); Mean Corpuscular Volume 86 fl (79-97); Platelet Count 239 K/mm3 (140-440); Red Blood Count 4.29 M/mm3 (3.65-5.03)
[2018-06-29 20:25] LABS: Alanine Aminotransferase 14 units/L (7-56); Albumin 4.1 g/dL (3.9-5); BUN/Creatinine Ratio 10; Blood Urea Nitrogen 4 mg/dL (7-17); Calcium 9.7 mg/dL (8.4-10.2); Hemolysis Index 2
[2018-06-30] MEDS ORDERED: MORPHINE IV ONE ×2 (11:00→15:22)
[2018-06-30] MEDS ORDERED: ZOFRAN IV ONE (11:00)
--- NOTE | 2018-06-30 11:04 | Emergency Department Report ---
HPI - General Chief Complaint: Abdominal Pain Time Seen by Provider: 06/29/18 19:25 - HPI HPI: 22-year-old female presents to the emergency department with the complaint of a one-week history of generalized abdominal pain, nausea and vomiting. The patient has been here previously, last month, for similar symptoms. She says that she has a history of gastroparesis. She does not have a primary care physician. She has not taken anything for her symptoms prior to presentation as she says she is unable to keep anything down." No recent travel or sick contacts at home. ED Past Medical Hx - Past Medical History Previous Medical History?: Yes Hx Congestive Heart Failure: No Hx Diabetes: Yes Hx Asthma: No Hx COPD: No - Surgical History Past Surgical History?: No - Social History Smoking Status: Current Every Day Smoker Substance Use Type: None - Medications Home Medications: Home Medications Medication Instructions Recorded Confirmed Last Taken Type Acetaminophen [Acetaminophen TAB] 650 mg PO Q4H PRN #15 tablet 01/31/18 Unknown Rx Gabapentin [Neurontin] 300 mg PO BID #60 capsule 01/31/18 Unknown Rx Insulin NPH/Regular [NovoLIN 70/30] 15 unit SUB-Q BIDDIAB #60 units 01/31/18 Unknown Rx Insulin Regular, Human [Novolin R] 1 units SUB-Q AC PRN #1 vial 01/31/18 Unknown Rx Metoclopramide [Reglan ORAL LIQ] 10 mg PO TIDWM PRN 15 Days #30 01/31/18 Unknown Rx oral.liqd oxyCODONE /ACETAMINOPHEN [Percocet 1 tab PO Q6H PRN #15 tablet 01/31/18 Unknown Rx 5/325 mg] Ibuprofen [Motrin] 600 mg PO Q8H PRN #30 tablet 02/04/18 Unknown Rx Promethazine [Phenergan TAB] 25 mg PO Q6HR PRN #20 tab 06/01/18 Unknown Rx Nitrofurantoin Monohyd/M-Cryst 100 mg PO BID #14 capsule 06/30/18 Unknown Rx [Macrobid 100 mg Capsule] Ondansetron [Zofran Odt] 4 mg PO Q8HR PRN #10 tab.rapdis 06/30/18 Unknown Rx traMADol [Ultram 50 MG tab] 50 mg PO Q6HR PRN #10 tablet 03/25/19 Unknown Rx ED Review of Systems ROS: Stated complaint: ABD PAIN Other details as noted in HPI Comment: All other systems reviewed and negative Constitutional: denies: chills, fever Eyes: denies: eye pain, vision change ENT: denies: ear pain, throat pain Respiratory: denies: cough, shortness of breath Cardiovascular: denies: chest pain, palpitations Gastrointestinal: abdominal pain, nausea, vomiting Genitourinary: denies: dysuria, discharge Musculoskeletal: denies: back pain, arthralgia Skin: denies: rash, lesions Neurological: denies: headache, weakness Physical Exam - Physical Exam Vital Signs: Vital Signs 06/29/18 06/29/18 20:09 23:45 Temperature 97.6 F 98.0 F Pulse Rate 125 H 132 H Respiratory 18 16 Rate Blood Pressure 144/89 127/81 O2 Sat by Pulse 100 96 Oximetry Physical Exam: GENERAL: The patient is well-developed well-nourished. HEENT: Normocephalic. Atraumatic. Patient has moist mucous membranes. EYES: Extraocular motions are intact. Pupils are equal and reactive to light bilaterally. NECK: Supple. Trachea is midline. CHEST/LUNGS: Clear to auscultation. There is no respiratory distress noted. HEART/CARDIOVASCULAR: Regular. There is mild to moderate tachycardia. There is no obvious murmur. ABDOMEN: Abdomen is soft. Generalized tenderness to palpation. No guarding. Patient has normal bowel sounds. There is no abdominal distention. SKIN: Skin is warm and dry. NEURO: The patient is awake, alert, and oriented. The patient is cooperative. The patient has no focal neurologic deficits. The patient has normal speech. MUSCULOSKELETAL: There is no tenderness or deformity. There is no evidence of acute injury. ED Course Vital Signs 06/29/18 06/29/18 20:09 23:45 Temperature 97.6 F 98.0 F Pulse Rate 125 H 132 H Respiratory 18 16 Rate Blood Pressure 144/89 127/81 O2 Sat by Pulse 100 96 Oximetry ED Medical Decision Making - Lab Data Result diagrams: 06/29/18 19:54 06/29/18 19:54 - Radiology Data Radiology results: report reviewed, image reviewed interpreted by me: Abdominal x-ray shows nonspecific nonobstructive bowel gas. PROCEDURE: CT ABDOMEN PELVIS W CON TECHNIQUE: CT of the abdomen and pelvis was performed. IV contrast was administered. No oral contrast was administered. Axial images and coronal and sagittal reformatted images were obtained. HISTORY: Abd Pain COMPARISON: None FINDINGS: The visualized lung bases are clear. The visualized liver, spleen, pancreas, adrenal glands and kidneys demonstrate no significant abnormality. There is no abdominal aortic aneurysm. There is no evidence for intestinal obstruction. The appendix is normal. There is no abnormal fluid collection seen. There is no free intraperitoneal air. Bladder is unremarkable. There is no abnormal pelvic fluid collection or mass seen. There is nonspecific mild generalized subcutaneous edema. Correlate clinically. IMPRESSION: Nonspecific mild generalized subcutaneous edema. Correlate clinically. Otherwise no acute abnormality identified in the abdomen or pelvis. This document is electronically signed by Evelin Torrez MD., June 30 2018 02:05:27 PM ET Transcribed By: MADELAINE Dictated By: EVELIN TORREZ MD Electronically Authenticated By: EVELIN TORREZ MD Signed Date/Time: 06/30/18 1407 - Medical Decision Making Patient presents with nausea, vomiting, abdominal pain. Vital signs were stable, being afebrile but she did have some mild to moderate tachycardia at first. Labs were unremarkable including CMP, CBC, urinalysis and the patient is not . She did have a mild urinary tract infection and was given a dose of Rocephin and will be sent home with some Macrobid. While she was here she was given some antiemetics, pain medication and IV fluid resuscitation. CT scan of the abdomen and pelvis did not show any acute process. Prior to discharge the patient was able to pass a challenge. She was given a referral for primary care and gastroenterology. She was instructed to increase her oral rehydration and to return to the emergency Department with any worsening of her symptoms or any acute distress. - Differential Diagnosis gastroparesis, food poisoning, food sensitivity, viral syndrome Critical Care Time: No Critical care attestation.: If time is entered above; I have spent that time in minutes in the direct care of this critically ill patient, excluding procedure time. ED Disposition Clinical Impression: Dehydration Nausea & vomiting Qualifiers: Vomiting type: unspecified Vomiting Intractability: non-intractable Qualified Code(s): R11.2 - Nausea with vomiting, unspecified Abdominal pain Qualifiers: Abdominal location: generalized Qualified Code(s): R10.84 - Generalized abdominal pain Disposition: DC-01 TO HOME OR SELFCARE Is pt being admited?: No Condition: Stable Instructions: Dehydration (ED), Acute Nausea and Vomiting (ED), Abdominal Pain (ED) Additional Instructions: Please follow up with your primary care physician and a soap grinder. Increase your rehydration. Return to the emergency Department with any worsening of her symptoms or any acute distress. You have been prescribed a medication that can be sedating. Therefore, this medication cannot be taken prior to driving, working, being responsible for children, and cannot be mixed with alcohol of any quantity. Prescriptions: traMADol [Ultram 50 MG tab] 50 mg PO Q6HR PRN #10 tablet PRN Reason: Pain Ondansetron [Zofran Odt] 4 mg PO Q8HR PRN #10 tab.rapdis PRN Reason: Nausea Referrals: [facility] [Outside] - 3-5 Days EL SHELTON MD [Staff Physician] - 3-5 Days Forms: Work/School Release Form(ED)
[2018-06-30] MEDS ORDERED: NACL 0.9% 1000 ML 1,000 ML ONE (11:20)
--- NOTE | 2018-06-30 11:46 | XRay Report ---
ABDOMEN, 2 views: History: Abdominal pain. There is no evidence of free air beneath the diaphragms. The gas pattern within the abdomen is unremarkable. There is no evidence of bowel dilatation, significant air-fluid levels, or pathologic calcifications. Organ shadows are unremarkable. IMPRESSION: Unremarkable abdomen.
[2018-06-30 12:29] LABS: Bilirubin,Urine NEG (Negative); Blood,Urine NEG (Negative); Color,Urine Yellow (Yellow); Protein,Urine <15 mg/dL mg/dL (Negative); Urobilinogen,Urine < 2.0 mg/dL (<2.0)
[2018-06-30] MEDS ORDERED: NACL 0.9% 1000 ML 1,000 ML IV ONE ×2 (12:46→15:00)
[2018-06-30] MEDS ORDERED: ROCEPHIN/NS 1 GM/50 ML 1 GM/50 ML BAG IV ONE (12:47)
--- NOTE | 2018-06-30 14:07 | Cat Scan Report ---
PROCEDURE: CT ABDOMEN PELVIS W CON TECHNIQUE: CT of the abdomen and pelvis was performed. IV contrast was administered. No oral contrast was administered. Axial images and coronal and sagittal reformatted images were obtained. HISTORY: Abd Pain COMPARISON: None FINDINGS: The visualized lung bases are clear. The visualized liver, spleen, pancreas, adrenal glands and kidneys demonstrate no significant abnorma lity. There is no abdominal aortic aneurysm. There is no evidence for intestinal obstruction. The appendix is normal. There is no abnormal fluid collection seen. There is no free intraperitoneal air. Bladder is unremarkable. There is no abnormal pelvic fluid collection or mass seen. There is nonspecific mild generalized subcutaneous edema. Correlate clinically. IMPRESSION: Nonspecific mild generalized subcutaneous edema. Correlate clinically. Otherwise no acute abnormality identified in the abdomen or pelvis. This document is electronically signed by Evelin Barrios MD., June 30 2018 02:05:27 PM ET
[2018-06-30] MEDS ORDERED: REGLAN IV ONE (15:22)
[2018-06-30 16:55] VITALS: BP 116/76
== END 2018-06-30 17:40 | disposition home or self-care (01) ==
LOC: ED 19:24
DX: E86.0 Dehydration (principal); E11.9 Type 2 diabetes mellitus without complications; F17.200 Nicotine dependence, unspecified, uncomplicated; Z79.899 Other long term (current) drug therapy
CPT/HCPCS: 36415; 74019; 74177; 80053; 81001; 83690; 84703; 85027; 96361; 96365; 96375; 96376; 99284; J0696; J2270; J2405; J2765; J7030; Q9967